=== PATIENT | male | born 1945 | race Caucasian/White ===

== ENCOUNTER 2018-12-23 07:59 | Inpatient (IN) | payer MEDICARE, OTHER ==
--- NOTE | 2018-12-20 14:09 | Diagnostic Imaging Report ---
EXAMINATION: PA and lateral views of the chest. COMPARISON: None CLINICAL HISTORY: Sternotomy wires DISCUSSION: Lines/tubes: None. Lungs: The lungs are well inflated and clear. No pneumonia or pulmonary edema. Pleura: No pleural effusion or pneumothorax. Heart and mediastinum: The cardiomediastinal silhouette is normal. Bones and soft tissues: No acute bony abnormalities. IMPRESSION: No acute cardiopulmonary abnormalities. Signed by: Dr. Blaise Mccracken M.D. on 12/20/2018 2:06 PM
[~2018-12-23] VITALS: Ht 175.3 cm; Wt 94.8 kg
[~2018-12-23 07:59] MED LIST: ALEVE220 MG PO; ASPIRIN325 MG PO; CLONIDINE HCL0.2 MG PO; CLOPIDOGREL75 MG PO; CRESTOR10 MG PO; FLOMAX0.4 MG PO; GLIMEPIRIDE2 MG PO; LOSARTAN-HCTZ1 EAC1 PO; METFORMIN PO; METOPROLOL PO; NITROSTAT; ROPIVACAINE 246.25 MG, EPINEPHRINE HCL 1:1000 1ML 0.5 MG, CLONIDINE HCL 0.08 MG, KETORO... INJ ONE; TOBRAMYCIN 1.2GM BULK BOTTLE INJ ONE; VANCOMYCIN HCL 1 GM VIAL IV ONE; VITAMIN C PO
--- OUTSIDE RECORDS SUMMARY | 2018-12-23 08:01 | XMS REPORT | Continuity of Care Document ---
Author Author [facility] Interface Address Unknown Phone Unavailable Problems Problem Status Onset Date Classification Date Reported Comments Source Hypertensive heart disease with heart failure Active Problem 10/23/2017 Anne Yuan Atherosclerosis of [place] arteries of extremity with intermittent claudication Active Problem 10/23/2017 Anne Yuan Stented coronary artery Active Problem 10/23/2017 Anne Yuan CAD of autologous arterial graft Active Diagnosis 10/23/2017 Anne Yuan Former smoker Active Problem 10/23/2017 Anne Yuan CKD , stage III Active Problem 10/23/2017 Anne Yuan Bradycardia Active Problem 10/23/2017 Anne Yuan Hypercholesteremia Active Problem 10/23/2017 Anne Yuan DM Active Problem 10/23/2017 Anne Yuan Abdominal aortic aneurysm without rupture Active Problem 10/23/2017 Anne Yuan Abnormal EKG Active Problem 10/23/2017 Anne Yuan Medications Medication Details Route Status Patient Instructions Ordering Provider Order Date Source Toprol XL 1 tablet Orally Active 25 MG Orally Once a day Kwabena Yuan Toprol XL 1 tablet Orally Active 25 MG Orally Once a day Kwabena Yuan Allergies, Adverse Reactions, Alerts Substance Category Reaction Severity Reaction type Status Date Reported Comments Source Immunizations Immunization Date Given Site Status Last Updated Comments Source Results Order Name Results Value Reference Range Date Interpretation Comments Source Vital Signs Vital Sign Value Date Comments Source Encounters Location Location Details Encounter Type Encounter Number Reason For Visit Attending Provider ADM Date DC Date Status Source Anne Yuan MD PA Unknown [id number] 11/25/2014 11/25/2014 Anne Yuan Procedures Procedure Code Date Perfomer Comments Source
--- OUTSIDE RECORDS SUMMARY | 2018-12-23 08:01 | XMS REPORT ---
Author Author Anne Yuan Organization [employer] Address Unknown Phone Unavailable Care Team Providers Care Drawing Press Operator Name Role Phone Anne Yuan CP Unavailable Encounters Encounter Location Date Unknown Anne Yuan MD PA Nov 25, 2014 Social History Social History Element Qualifiers Date Reported Smoking . Status Former Smoker Quit in 1994Nov 24, 2014 Alcohol Use No. Nov 24, 2014 Alcohol Screening: No. Points: 0, Interpretation: Negative Nov 24, 2014 Marital Status: . Nov 24, 2014 Do you drink alcohol? No. 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
--- OUTSIDE RECORDS SUMMARY | 2018-12-23 08:01 | XMS REPORT ---
Author Author [facility] Address Unknown Phone Unavailable Care Team Providers Care Keyseating Machine Set Up Operator Name Role Phone LOGAN ABBOTT Unavailable Unavailable Payers Payer Name Policy Type Policy Number Effective Date Expiration Date Problems This patient has no known problems. Allergies, Adverse Reactions, Alerts Allergy Name Allergy Type Status Severity Reaction(s) Onset Date Inactive Date Treating Clinician Comments morphine DA Active U 2018-09-24 00:00:00 codeine DA Active U 2018-09-24 00:00:00 morphine DA Active U 2016-11-26 00:00:00 codeine DA Active U 2016-11-26 00:00:00 Medications This patient has no known medications. Results Test Description Test Time Test Comments Text Results Atomic Results Result Comments CHEST 2 VIEWS 2018-12-20 14:03:00 [facility] [address] [place] [address] Patient Name: TALIB CASTRO MR #: [id number] : 1945 Age/Sex: 73/M Req #: [id number] Adm Physician: Ordered by: LOGAN ABBOTT MD Report #: [id number] Location: OR Room/Bed: Procedure: [id number] DX/CHEST 2 VIEWS Exam Date: 12/20/18 Exam Time: 1351 REPORT STATUS: Signed EXAMINATION: PA and lateral views of the chest. COMPAR MIKE: None CLINICAL HISTORY: Sternotomy wires DISCUSSION: Lines/tubes: None. Lungs: The lungs are well inflated and clear. No pneumonia or pulmonary edema. Pleura: No pleural effusion or pneumothorax. Heart and mediastinum: The cardiomediastinal silhouette is normal. Bones and soft tissues: No acute bony abnormalities. IMPRESSION: No acute cardiopulmonary abnormalities. Signed by: Dr. Dewayne Mckeon M.D. on 12/20/2018 2:06 PM Dictated By: DEWAYNE MCKEON MD [id number] Transcribed By: JOSHUA on 12/20/18 1406 COPY TO: LOGAN ABBOTT MD
--- OUTSIDE RECORDS SUMMARY | 2018-12-23 08:01 | XMS REPORT ---
Author Author Anne Yuan Organization e[employer] Address Unknown Phone Unavailable Care Team Providers Care Automotive Welder Name Role Phone Anne Yuan CP Unavailable Allergies No Known Allergies Problems Problem Type Condition Code Onset Dates Condition Status Problem Hypertensive heart disease with heart failure I11.0 Active Problem Atherosclerosis of [place] arteries of extremity with intermittent claudication I70.219 Active Problem Stented coronary artery Z95.5 Active Assessment CAD of autologous arterial graft I25.810 Active Problem CAD of autologous arterial graft I25.810 Active Problem Former smoker Z87.891 Active Problem CKD (chronic kidney disease), stage III N18.3 Active Problem Bradycardia R00.1 Active Problem Hypercholesteremia E78.00 Active Problem DM (diabetes mellitus) E11.9 Active Problem Abdominal aortic aneurysm (AAA) without rupture I71.4 Active Problem Abnormal EKG R94.31 Active Medications Medication Code System Code Instructions Start Date End Date Status Dosage Toprol XL [facility] 15162056043 25 MG Orally Once a day Active 1 tablet Results No Known Results Summary Purpose eClinicalWorks Submission
--- OUTSIDE RECORDS SUMMARY | 2018-12-23 08:01 | XMS REPORT ---
Author Author Anne Yuan Organization [employer] Address Unknown Phone Unavailable Care Team Providers Care Braille And Talking Books Clerk Name Role Phone Anne Yuan CP Unavailable Allergies No Known Allergies Problems Problem Type Condition Code Onset Dates Condition Status Problem DM (diabetes mellitus) E11.9 Active Problem Hypercholesteremia E78.00 Active Problem Atherosclerosis of [place] arteries of extremity with intermittent claudication I70.219 Active Assessment CAD of autologous arterial graft I25.810 Active Problem Stented coronary artery Z95.5 Active Problem CKD (chronic kidney disease), stage III N18.3 Active Problem Former smoker Z87.891 Active Problem Bradycardia R00.1 Active Problem Hypertensive heart disease with heart failure I11.0 Active Problem Abnormal EKG R94.31 Active Problem Abdominal aortic aneurysm (AAA) without rupture I71.4 Active Problem CAD of autologous arterial graft I25.810 Active Medications Medication Code System Code Instructions Start Date End Date Status Dosage Toprol XL [facility] [address]-80 25 MG Orally Once a day Active 1 tablet Results No Known Results Summary Purpose eClinicalWorks Submission
[2018-12-23] MEDS ORDERED: TRANEXAMIC ACID 1,000 MG/10 ML ML ONE (08:11)
[2018-12-23] MEDS ORDERED: BACITRACIN 50,000 UNIT VIAL ONE ×2 (08:11→12:18)
[2018-12-23] MEDS ORDERED: VANCOMYCIN HCL 500 MG ONE (08:19)
[2018-12-23] MEDS ORDERED: SODIUM CHLORIDE 0.9% 500ML 500 ML ONE (08:19)
[2018-12-23] MEDS ORDERED: DEXAMETHASONE SOD PHOS 10 MG/1 ML VIAL ONE (08:34)
[2018-12-23] MEDS ORDERED: CELECOXIB 200 MG CAP ONE (08:34)
[2018-12-23] MEDS ORDERED: GABAPENTIN 300 MG CAP ONE (08:34)
[2018-12-23] MEDS ORDERED: VANCOMYCIN 1GM/NS 250 ML 250 ML ONE (08:34)
[2018-12-23] MEDS ORDERED: ACETAMINOPHEN 650 MG SUPP PR PRN (13:00)
[2018-12-23] MEDS ORDERED: HYDROCODONE/APAP 5MG-325MG TAB PO PRN (13:00)
[2018-12-23] MEDS ORDERED: DOCUSATE SODIUM 100 MG CAP PO PRN (13:00)
[2018-12-23] MEDS ORDERED: ONDANSETRON HCL INJ 2MG/ML 2ML 2 MG/ML VIAL IV PRN (13:00)
[2018-12-23] MEDS ORDERED: PROMETHAZINE HCL (IM) 25 MG/ML VIAL IM PRN (13:00)
[2018-12-23] MEDS ORDERED: KETOROLAC TROMETHAMINE 30 MG/ML VIAL IV PRN (13:00)
[2018-12-23] MEDS ORDERED: DIPHENHYDRAMINE HCL INJ 50 MG/ML VIAL IM/IV PRN (13:00)
[2018-12-23] MEDS ORDERED: FENTANYL CITRATE/PF 100MCG/2 ML INJ ONE ×2 (13:44→18:17)
[2018-12-23] MEDS ORDERED: HYDROMORPHONE 2MG/ML 2 MG/ML ML ONE (14:01)
[2018-12-23] MEDS ORDERED: VANCOMYCIN HCL 1 GM VIAL ONE (14:20)
[2018-12-23] MEDS ORDERED: TOBRAMYCIN 1.2GM BULK BOTTLE ONE (14:21)
[2018-12-23] MEDS ORDERED: PROPOFOL IV EMULSION 10 MG/ML 20 ML VIAL ONE (15:03)
[2018-12-23] MEDS ORDERED: KETOROLAC TROMETHAMINE 30 MG/ML VIAL ONE (15:03)
[2018-12-23] MEDS ORDERED: ROCURONIUM BROMIDE 10 MG/ML 5ML VIAL ONE (15:03)
[2018-12-23] MEDS ORDERED: SEVOFLURANE INHAL SOLN 250 ML PEN BTL ONE (15:03)
[2018-12-23] MEDS ORDERED: DEXAMETHASONE SOD PHOS INJ 4 MG/ML VIAL ONE (15:03)
[2018-12-23] MEDS ORDERED: LIDOCAINE HCL 2% LOCAL INJ 5 ML SDV VIAL INJ ONE (15:03)
[2018-12-23] MEDS ORDERED: ONDANSETRON HCL INJ 2MG/ML 2ML 2 MG/ML VIAL ONE (15:03)
[2018-12-23] MEDS ORDERED: ACETAMINOPHEN 1000 MG/100 ML IV ONE (15:03)
--- NOTE | 2018-12-23 15:04 | Diagnostic Imaging Report ---
Exam: Left knee radiographs - 2 views History: Per clinical note, there was a prior history of fixation hardware in the left tibia for fracture, that subsequently became infected. Now status post removal with antibiotic spacer placement. Postoperative radiographs. Comparison: None. Findings: There has been removal of reported left tibial fixation hardware. There is an antibiotic articulating cement spacer between the distal femur and proximal tibia. There are immediate postoperative changes including subcutaneous gas, a knee effusion, and overlying skin jacquelyn. There is a mixed lytic and sclerotic appearance of the proximal tibia. There is a possible fracture line through the proximal tibial metaphysis, suggestive of incomplete healing. No evidence of displaced fracture. Impression: Postsurgical changes status post left tibial fixation hardware removal and placement of antibiotic spacer. Mixed lytic and sclerotic appearance of the proximal tibia, in this patient with known previously infected hardware. Underlying osteomyelitis is possible in the appropriate clinical context, and could be further assessed with cross sectional imaging if clinically indicated. There is a possible fracture line through the proximal tibial metaphysis, suggestive of incomplete healing. Comparison with known pre-operative radiographs or cross-sectional imaging is suggested. Signed by: Dr. Goyo Ko MD on 12/23/2018 3:01 PM
[2018-12-23] MEDS ORDERED: HYDROCODONE/APAP 7.5MG-325MG 1 EA TAB ONE (16:50)
[2018-12-23] MEDS: HYDROCODONE/APAP 7.5MG-325MG 1 EA TAB PO PRN ×2 (16:51→21:19)
[2018-12-23] MEDS ORDERED: CELECOXIB 100 MG CAP PO SCH (17:00)
[2018-12-23] MEDS ORDERED: ASPIRIN 325 MG TAB PO SCH (17:00)
[2018-12-23] MEDS: CELECOXIB 200 MG CAP PO SCH (17:00)
[2018-12-23] MEDS: ACETAMINOPHEN 1000 MG/100 ML IV SCH ×2 (18:00→23:31)
[2018-12-23] MEDS ORDERED: MIDAZOLAM HCL 2 MG/2 ML VIAL ONE (18:17)
[2018-12-23 20:00] VITALS: BP 187/80
[2018-12-23] MEDS: VANCOMYCIN 1GM/NS 250 ML 250 ML IV SCH (20:41)
[2018-12-23] MEDS ORDERED: ZOLPIDEM TARTRATE 5 MG TAB PO PRN (21:00)
[2018-12-23 22:22] VITALS: BP 179/88
[2018-12-24] VITALS (9 sets, daily range): BP systolic 120–194; BP diastolic 58–84
--- NOTE | 2018-12-24 00:30 | NUR ---
Dr. Taylor put order for PICC line insertion. Radiology states they need labs CBC, BMP, and PT/INR before calling PICC nurse. Labs where ordered as per protocol for routine in the morning.
[2018-12-24] MEDS: ACETAMINOPHEN 1000 MG/100 ML IV SCH ×2 (05:01→11:30)
[2018-12-24] MEDS ORDERED: DEXTROSE 50% SYRINGE 50 ML IV PRN (05:30)
[2018-12-24 05:51] LABS: INR 0.94; PROTHROMBIN TIME 13.4 seconds (11.9-14.5)
[2018-12-24] MEDS: CLONIDINE HCL 0.2 MG TAB PO SCH ×3 (05:51→17:45)
[2018-12-24 05:59] LABS: ANION GAP 16.2 mmol/L (8-16); CALCIUM 9.2 mg/dL (8.4-10.2); CREATININE, SERUM 1.65 mg/dL (0.72-1.25); POTASSIUM 4.2 mmol/L (3.5-5.1)
--- NOTE | 2018-12-24 06:04 | Consultation ---
DATE OF CONSULTATION: December 24, 2018 Patient is status post left total knee arthroplasty revision by Dr. Taylor, who is doing well postoperatively. I was consulted for medical management. REVIEW OF SYSTEMS: The patient denies on review of systems any fever, chills, nausea, vomiting, headache, shortness of breath, dizziness, or chest pains. PAST MEDICAL HISTORY: Significant hypertension, diabetes, BPH, hyperlipidemia. MEDICATIONS: See MAR. ALLERGIES: CODEINE, MORPHINE AND TRAMADOL. SOCIAL HISTORY: . Lives at home with his . Denies any tobacco or alcohol abuse. FAMILY HISTORY: Diabetes, heart disease and lung cancer. PHYSICAL EXAMINATION VITALS: 98.6, blood pressure 160/70, pulse 80, sats 98%. GENERAL: He is in no apparent distress lying in bed. NECK: Supple. No lymphadenopathy. CARDIOVASCULAR: Regular rate and rhythm. LUNGS: Clear to auscultation bilaterally. ABDOMEN: Good bowel sounds. Soft and nontender. EXTREMITIES: No clubbing or cyanosis. NEUROLOGIC: Nonfocal. ASSESSMENT AND PLAN 1. Left knee pain: Will continue with pain control and start physical therapy. 2. . 3. Hypertension: Continue with his home medications. Monitor. 4. Diabetes: Continue with his home medications. Place him a sliding scale. 5. BPH: Continue with his home medicines. 6. Hyperlipidemia: Will continue with his cholesterol medicine. Please see hospital chart for full details. Job#: [id number] VT
[2018-12-24] MEDS: HYDROCODONE/APAP 7.5MG-325MG 1 EA TAB PO PRN ×3 (06:17→17:45)
[2018-12-24 06:29] LABS: BASOPHILS % 0.1 % (0.0-1.0); HEMOGLOBIN 13.1 g/dL (14.0-18.0); LYMPHOCYTES # (AUTO) 1.2 (1.0-3.2); LYMPHOCYTES % 9.4 % (18.0-39.1); MEAN CORPUSCULAR HEMOGLOBIN 27.5 pg (28-32); MEAN CORPUSCULAR HGB CONC 32.8 g/dL (31-35); MONOCYTES # (AUTO) 1.8 (0.2-0.8); MONOCYTES % 13.9 % (4.4-11.3); NEUTROPHILS # (AUTO) 9.8 (2.1-6.9); PLATELET COUNT 273 x10e3/uL (140-360); RED BLOOD COUNT 4.76 x10e6/uL (4.3-5.7); RED CELL DISTRIBUTION WIDTH 13.8 % (11.7-14.4)
--- NOTE | 2018-12-24 06:55 | NUR ---
rounded with alum mixer nurse, patient aware of change. Patient in no distress, call [facility] within reach
[2018-12-24] MEDS: INSULIN REGULAR, HUMAN 100 UNIT/1 ML 3ML VIAL SQ SCH ×4 (07:30→20:21)
[2018-12-24 08:14] LABS: LYMPHOCYTES % (MANUAL) 10 % (19-48); MONOCYTES % (MANUAL) 12 % (3.4-9.0); NEUTROPHILS % (MANUAL) 78 % (40-74); PLATELET ESTIMATE ADEQUATE; PLATELET MORPHOLOGY COMMENT NORMAL; RBC MORPHOLOGY COMMENT NORMAL
[2018-12-24] MEDS: GLIMEPIRIDE 2 MG TAB PO SCH (08:26)
[2018-12-24] MEDS: HYDROCHLOROTHIAZIDE 25 MG TAB PO SCH (08:26)
[2018-12-24] MEDS: METOPROLOL TARTRATE 50 MG TAB PO SCH (08:26)
[2018-12-24] MEDS: VANCOMYCIN 1GM/NS 250 ML 250 ML IV SCH ×2 (08:26→20:27)
[2018-12-24] MEDS: CELECOXIB 200 MG CAP PO SCH ×2 (08:26→17:00)
[2018-12-24] MEDS: ASPIRIN 325 MG TAB PO SCH (08:26)
[2018-12-24] MEDS: TAMSULOSIN HCL 0.4 MG CAP PO SCH (08:26)
[2018-12-24] MEDS: CLOPIDOGREL BISULFATE 75 MG TAB PO SCH (08:27)
[2018-12-24] MEDS: ASCORBIC ACID 500 MG TAB PO SCH ×2 (08:27→17:45)
[2018-12-24] MEDS: NAPROXEN 250 MG TAB PO SCH (08:27)
[2018-12-24] MEDS ORDERED: CLONIDINE HCL 0.2 MG TAB PO SCH (09:00)
[2018-12-24] MEDS: HYDRALAZINE HCL 20 MG/ML VIAL IV PRN (11:30)
--- NOTE | 2018-12-24 11:33 | Operative Report ---
DATE OF PROCEDURE: December 23, 2018 SIGNALLING AND COMMUNICATIONS ENGINEER: Jamel Vincent PA-C The patient was brought to the operating room for induction of anesthesia. Throughout this case, my PA's assistance was necessary for retraction of soft tissue and positioning of the extremity. This allows for efficient and technically successful execution of the operation and is considered medically necessary. PREOPERATIVE DIAGNOSES 1. Complication of infection regarding internal fixation, left tibia and left knee joint. 2. Associated osteomyelitis. POSTOPERATIVE DIAGNOSES 1. Complication of infection regarding internal fixation, left tibia and left knee joint. 2. Associated osteomyelitis. PROCEDURES 1. Left knee hardware removal. 2. Irrigation and sharp debridement. 3. Resection arthroplasty with placement of temporary antibiotic prosthesis. INDICATIONS: The patient is a 73-year-old gentleman who is several years status post tibial plateau surgery on his left knee. This was on done down at [facility] in [place]. Over the last year or 2, he has had progressive severe discomfort. Clinic exam, x-rays and laboratory studies are consistent with a septic failure of the internal fixation. The treatment options were explained. The complicated and difficult nature of his procedure have been discussed. Several stages of reconstruction may be necessary. The patient states he understands and wishes to proceed with the initial resection and debridement. DESCRIPTION OF PROCEDURE: The patient was brought to the operating room and placed under general anesthetic. Antibiotics were held until cultures were obtained. His left lower extremity was prepped and draped in a sterile manner. A preoperative time out was performed. The extremity was exsanguinated, and a proximal tourniquet was inflated to 300 mmHg. An extensile anterior approach was made to the left knee. Initial attention was directed towards removing the hardware. The periarticular plate was dissected out and removed. A combination of locking and compression screws were removed. Another screw that was buried in the bone was also removed. The lateral and proximal tibia were carefully debrided with a Kahn elevator. There was a fibrinous membrane that looked seropurulent. Cultures were taken of this area. Because of the extensive lateral dissection, I elected to use primarily a lateral approach to the knee. A lateral parapatellar arthrotomy was performed. Soft-tissue releases were performed to mobilize the tibia. This actually required a partial medial release to juliocesar the patella. The knee was very stiff prior to this. It was noted that the hardware had been protruding into the joint. The posterior aspect of the tibia was completely un-united. There were some areas of necrotic bone. Cultures were also taken from within the knee joint. Vancomycin was then administered. A subtotal synovectomy was performed. The proximal tibia was resected with an oscillating saw. This was debrided down to more healthy-appearing bone. Cuts were made of the distal femur as well to remove the articular cartilage. The articular cartilage was also debrided off of the undersurface of the patella. The knee, on several occasions, was thoroughly irrigated with a shower-tip pulsatile lavage. Approximately 12 grams of vancomycin powder and another 6 grams of tobramycin were mixed in with 3 mixes of Simplex cement on the back table. This was used to construct a crude tibial baseplate. A prefabricated form for a distal femoral component was also fabricated. However, upon trying to insert this into the knee, it was really too tight. The femoral component started to fracture. I did not want to resect additional bone as the bone appeared fine at the level I had resected. We, therefore, used some of the vancomycin and tobramycin powder directly into the knee. The arthrotomy was then closed with interrupted #1 Ethibond. The skin was closed subcuticular Vicryl and jacquelyn. A bulky sterile bandage was applied. He was placed into a knee immobilizer. He was extubated and transported to the recovery room in stable condition. Estimated blood loss was 100 mL. All needle and sponge counts were correct. Job#: [id number]
[2018-12-24] MEDS ORDERED: ACETAMINOPHEN 1000 MG/100 ML IV PRN (13:00)
--- NOTE | 2018-12-24 13:01 | NUR ---
CIA AGENT INITIAL ASSESSMENT Maintenance Coordinator to bedside to discuss plan of care with patient/family. CM/SW role and care transitions discussed. Anticipated discharge plan discussed along with duration of care. CM/SW discussed patients right to make decisions in care. CM/SW work hours given. Patient lives: in house in [place] with his Becky Admit/Transfer: Direct admit POA/Emergency contact: : Becky [phone] Current/Previous Home Health: none but wants home health PCP/Follow-up Care: Dr. Donnie Mendoza Current/Previous DME: Needs wheelchair with leg lift. No wt bearing and cannot bend knee. Other Services: is asking for assistance with meals and home care. She is disabled and very anxious. States she is aware there are services for seniors, but does not know who to contact. Explained to her that social worker health services will be here tomorrow, and will be notified to please visit with her. Employment Status: Retired Areas of Concerns: is disabled and feeling very anxious about caring for her and herself. Is wanting additional resources. Referral Needs: financial services education consultant for community resources. Education Needs: caregiver needs education on how to care for patient at home IMM/JURADO given and signed (if applicable): IMM Goal for discharge: to return home with and all available resources. CM/SW left business card at the bedside with contact information. Name and number was also written on the patients whiteboard. Patient verbalized understanding of discussion. CM will follow-up with ongoing discharge and transition of care needs.
--- NOTE | 2018-12-24 13:04 | Diagnostic Imaging Report ---
PROCEDURE: A single AP view of the chest. COMPARISON: None. INDICATIONS: PICC LINE PLACEMNT FINDINGS: Lines/tubes: Right-sided PICC terminates at the cavoatrial junction. There are sternotomy wire sutures. Lungs: The lungs are well inflated and clear. There is no evidence of pneumonia or pulmonary edema. Pleura: There is no pleural effusion or pneumothorax. Heart and mediastinum: The heart is mildly enlarged. Mediastinal prominence likely secondary to lipomatosis and related to the patient's body habitus. Bones: No acute bony abnormality. IMPRESSION: 1. No acute cardiopulmonary disease. 2. Right-sided PICC as described above. Dioni Daley D.O. Dictated by: Dioni Daley D.O. on 12/24/2018 at 13:15 Electronically approved by: Dioni Daley D.O. on 12/24/2018 at 13:15
--- NOTE | 2018-12-24 13:50 | NUR ---
Visit made by the Spiritual Care Department Pastoral Visitor, Chiqui Medina. Pt sleeping soundly and no family present. Pastoral Visitor left a card describing availability of gas utility worker and instructions on how to contact a gas utility worker. JIMMIE CASTILLO Pharmacy Cashier Spiritual Care Department O: [phone] Pager: [phone] ([phone] number calling from)
--- NOTE | 2018-12-24 14:42 | NUR ---
Nurse called and stated patient may need to go to LTAC for longterm IV antibiotics, pain control and PT. Informed her CM will need an LTAC eval order. She verbalized understanding.
--- NOTE | 2018-12-24 15:04 | NUR ---
Patient did notify CM earlier today that home health was set up by Dr. Taylor's office, but she did not know the name of it.
--- NOTE | 2018-12-24 16:47 | Consultation ---
DATE OF CONSULTATION: December 24, 2018 INFECTIOUS DISEASE CONSULTATION REASON FOR CONSULTATION: Infected knee, recommendation of antibiotic. HISTORY OF PRESENT ILLNESS: This is a patient who is a very pleasant 73-year-old gentleman who has history of hypertension, diabetes mellitus. The patient, who had a total knee replacement done by Dr. Taylor several years ago, had tibial plateau surgery done in his left knee at [facility] in [place]. The patient over the last year has been having progressive discomfort. The patient had x-ray consistent with open infection and failure of the internal fixation. Patient was admitted where he underwent a left knee hardware removal, irrigation and sharp debridement, resection, arthroplasty with placement of temporary antibiotic prosthesis. I was asked to see him to make recommendation towards antibiotic. The patient is currently lying in bed comfortably. PAST MEDICAL HISTORY: As above. PAST SURGICAL HISTORY: As above. ALLERGIES: NKA. SOCIAL HISTORY: There is no smoking, drug abuse, alcohol abuse. REVIEW OF SYSTEMS HEENT: Negative. PULMONARY: Negative. CARDIAC: Negative. : Negative. SKIN: There is no rash. PHYSICAL EXAMINATION GENERAL: He is currently alert, oriented, does not seem to be in acute distress. VITAL SIGNS: Stable. Currently afebrile. HEENT: He does not appear icteric. NECK: Supple. CHEST: Clear. HEART: S1 and S2. No S3 or S4, no murmur. ABDOMEN: Soft. Bowel sounds present. No tenderness. EXTREMITIES: No edema. He is status post surgery. IMPRESSION: Infected hardware, removed. Concerned about coagulase-negative staphylococcus or versus other. Await culture and sensitivity. Agree with vancomycin. Will add cefepime. Obtain sed rate, obtain C-reactive protein. PICC line is inserted. Biweekly CBC, biweekly chem panel, biweekly vancomycin trough. Eight weeks IV antibiotic. May need LTAC versus home. Will follow with you. Further recommendations to follow. DIVYA JONES MD Job#: [id number] EV
--- NOTE | 2018-12-24 19:10 | NUR ---
report given to shift leader nurse, patient aware of change. Bed in lowest position and call [facility] within reach.
[2018-12-24] MEDS ORDERED: SODIUM CHLORIDE 0.9% 250ML 250 ML ONE (20:13)
[2018-12-24] MEDS: LOSARTAN POTASSIUM 100 MG TAB PO SCH (20:20)
[2018-12-24] MEDS: SIMVASTATIN 20 MG TAB PO SCH (20:21)
--- NOTE | 2018-12-24 21:26 | NUR ---
Charles bandage removed and leg brace reapplied per Dr. Taylor. Surgical dressing dry and secure. Bilateral legs elevated with pillow.
[2018-12-24] MEDS: CEFEPIME 1GM/NS 0.9% 50 ML 50 ML IV SCH (21:51)
[2018-12-25] VITALS (9 sets, daily range): BP systolic 129–189; BP diastolic 67–84
[2018-12-25] MEDS: CLONIDINE HCL 0.2 MG TAB PO SCH ×4 (00:03→17:12)
[2018-12-25] MEDS: HYDRALAZINE HCL 20 MG/ML VIAL IV PRN (04:23)
[2018-12-25] MEDS: HYDROCODONE/APAP 7.5MG-325MG 1 EA TAB PO PRN ×4 (05:10→21:52)
--- NOTE | 2018-12-25 05:23 | NUR ---
Patient states he's having some "sensation" in his chest after IV hydralazine. Blood pressure 189/88 prior to hydralazine then 180/81 during sensation. States sensation has passed. States surgical site to left knee is at a 6 on pain scale. Administered pain medication. Will continue to monitor
[2018-12-25 05:41] LABS: HEMATOCRIT 39.9 % (38.2-49.6); HEMOGLOBIN 13.2 g/dL (14.0-18.0)
[2018-12-25] MEDS: CEFEPIME 1GM/NS 0.9% 50 ML 50 ML IV SCH ×3 (05:56→23:00)
[2018-12-25] MEDS: INSULIN REGULAR, HUMAN 100 UNIT/1 ML 3ML VIAL SQ SCH ×4 (07:50→21:30)
[2018-12-25] MEDS: GLIMEPIRIDE 2 MG TAB PO SCH (07:55)
--- NOTE | 2018-12-25 08:01 | NUR ---
patient resting in bed, Alert with no distress. left knee dressing is intact, call light in reach, keep monitoring
[2018-12-25] MEDS: NAPROXEN 250 MG TAB PO SCH (08:06)
[2018-12-25] MEDS: VANCOMYCIN 1GM/NS 250 ML 250 ML IV SCH ×2 (08:06→21:30)
[2018-12-25] MEDS: TAMSULOSIN HCL 0.4 MG CAP PO SCH (08:06)
[2018-12-25] MEDS: ASPIRIN 325 MG TAB PO SCH (08:06)
[2018-12-25] MEDS: METOPROLOL TARTRATE 50 MG TAB PO SCH (08:06)
[2018-12-25] MEDS: AMLODIPINE BESYLATE 5 MG TAB PO SCH (08:06)
[2018-12-25] MEDS: CELECOXIB 200 MG CAP PO SCH ×2 (08:06→17:11)
[2018-12-25] MEDS: HYDROCHLOROTHIAZIDE 25 MG TAB PO SCH (08:06)
[2018-12-25] MEDS: CLOPIDOGREL BISULFATE 75 MG TAB PO SCH (08:06)
[2018-12-25] MEDS: ASCORBIC ACID 500 MG TAB PO SCH ×2 (08:07→17:11)
--- NOTE | 2018-12-25 14:44 | NUR ---
RECEIVED ORDER FOR LTAC EVAL. MET W THE PT AND AT THE BEDSIDE. EXPLAINED THE PURPOSE OF THE VISIT. STATES SHE WAS AWARE OF A TRANSFER TO [facility] AND WAS WAITING FOR SOMEONE TO SEE THEM. EXPLAINED TO THE PT THE PURPOSE OF LTAC. VERBALIZED UNDERSTANDING. CHOICE LETTER WAS SIGNED AND PLACED CHART. COPY TO PT. NURIA CLEMENTS WAS NOTIFIED OF EVAL.
--- NOTE | 2018-12-25 16:40 | NUR ---
Patient got transfer to room 293, stable, not in any distress
--- NOTE | 2018-12-25 16:51 | NUR ---
Pt received from observation unit via bed. Pt oriented to staff and surroundings. Call [facility] within reach. Emotional support given. Will monitor
--- NOTE | 2018-12-25 19:00 | NUR ---
Received Pt lying in bed HOB 30 degrees. Alert and orient to name, place, time, and situation. Denies pain at this time. Resp even and unlabored. Family at bedside. Call [facility] within reach. Will continue to monitor.
[2018-12-25] MEDS: SIMVASTATIN 20 MG TAB PO SCH (21:30)
[2018-12-25] MEDS: LOSARTAN POTASSIUM 100 MG TAB PO SCH (21:30)
[2018-12-26] VITALS: BP 153/65
[2018-12-26] MEDS: HYDROCODONE/APAP 7.5MG-325MG 1 EA TAB PO PRN ×4 (02:22→14:47)
[2018-12-26 04:00] VITALS: BP 134/60
[2018-12-26] MEDS ORDERED: BISACODYL 5 MG TAB EC PO SCH (05:30)
[2018-12-26] MEDS: CEFEPIME 1GM/NS 0.9% 50 ML 50 ML IV SCH ×2 (05:46→13:32)
[2018-12-26] MEDS: CLONIDINE HCL 0.2 MG TAB PO SCH ×3 (05:47→12:52)
[2018-12-26 07:48] VITALS: BP 122/75
[2018-12-26 08:50] VITALS: BP 122/75
[2018-12-26] MEDS: VANCOMYCIN 1GM/NS 250 ML 250 ML IV SCH (09:00)
[2018-12-26] MEDS: INSULIN REGULAR, HUMAN 100 UNIT/1 ML 3ML VIAL SQ SCH ×2 (09:08→12:52)
[2018-12-26] MEDS: ASPIRIN 325 MG TAB PO SCH (09:08)
[2018-12-26] MEDS: GLIMEPIRIDE 2 MG TAB PO SCH (09:08)
--- NOTE | 2018-12-26 09:08 | NUR ---
Pt received resting in bed with at bedside. Left knee in immobilizer. All meds given as ordered. Call [facility] within reach. Emotional support given. Will monitor
[2018-12-26] MEDS: NAPROXEN 250 MG TAB PO SCH (09:09)
[2018-12-26] MEDS: AMLODIPINE BESYLATE 5 MG TAB PO SCH (09:09)
[2018-12-26] MEDS: TAMSULOSIN HCL 0.4 MG CAP PO SCH (09:09)
[2018-12-26] MEDS: CELECOXIB 200 MG CAP PO SCH (09:09)
[2018-12-26] MEDS: METOPROLOL TARTRATE 50 MG TAB PO SCH (09:09)
[2018-12-26] MEDS: HYDROCHLOROTHIAZIDE 25 MG TAB PO SCH (09:09)
[2018-12-26] MEDS: CLOPIDOGREL BISULFATE 75 MG TAB PO SCH (09:09)
[2018-12-26] MEDS: ASCORBIC ACID 500 MG TAB PO SCH (09:09)
[2018-12-26 11:04] LABS: BASOPHILS # (AUTO) 0.1 (0.0-0.1); BASOPHILS % 0.8 % (0.0-1.0); EOSINOPHILS # (AUTO) 0.2 (0.0-0.4); EOSINOPHILS % 2.3 % (0.0-6.0); HEMATOCRIT 42.4 % (38.2-49.6); HEMOGLOBIN 13.9 g/dL (14.0-18.0); LYMPHOCYTES % 14.3 % (18.0-39.1); MEAN CORPUSCULAR HEMOGLOBIN 27.5 pg (28-32); MEAN CORPUSCULAR HGB CONC 32.8 g/dL (31-35); MONOCYTES % 13.3 % (4.4-11.3); NEUTROPHILS % 68.7 % (38.7-80.0); PLATELET COUNT 252 x10e3/uL (140-360); RED BLOOD COUNT 5.05 x10e6/uL (4.3-5.7); RED CELL DISTRIBUTION WIDTH 14.1 % (11.7-14.4)
[2018-12-26 11:12] LABS: ANION GAP 15.8 mmol/L (8-16); BLOOD UREA NITROGEN 24 mg/dL (7-26); BUN/CREATININE RATIO 21 (6-25); CALCIUM 9.4 mg/dL (8.4-10.2); CARBON DIOXIDE 26 mmol/L (22-29); CHLORIDE 98 mmol/L (98-107); CREATININE, SERUM 1.17 mg/dL (0.72-1.25); EST GLOMERULAR FILTRATION RATE > 60 ML/MIN (60-); GLUCOSE 170 mg/dL (74-118); POTASSIUM 3.8 mmol/L (3.5-5.1); SODIUM 136 mmol/L (136-145)
[2018-12-26 11:17] LABS: VANCOMYCIN,TROUGH 21.8 ug/mL (5.0-10.0)
[2018-12-26 11:46] VITALS: BP 139/77
--- NOTE | 2018-12-26 12:09 | NUR ---
LONG-TERM ACUTE CARE DISCHARGE INFORMATION PATIENT HAS BEEN ACCEPTED TO: NAME: [facility] ADDRESS: [address], [place] [address] ACCEPTING APPRAISER OIL AND WATER: MAEGAN PARK, NURSE PRACTITIONER PER DIEM ACCEPTING MD: DR. DOOLEY ROOM: 312 NURSE CALL REPORT TO: [phone] THE FOLLOWING DOCUMENTS MUST ACCOMPANY PATIENT FOR TRANSFER: COPIED CHART: [facility] INFO RECEIVED FROM: [facility] ORDER/RECONCILED MED LIST: PER BEDSIDE NURSE [id number] DNR: N/A
--- NOTE | 2018-12-26 13:06 | NUR ---
Report given to Taylor HENDRIX at [facility]. Pt is being transferred to room 312
--- NOTE | 2018-12-26 15:09 | NUR ---
[facility] here to take pt to [facility]. Pt aware of transfer
[2018-12-27] MEDS ORDERED: VANCOMYCIN HCL 1.5 GM in SODIUM CHLORIDE 0.9% 250ML 300 ML IV SCH (11:00)
== END 2018-12-26 15:13 | DRG 940 ==
LOC: OR 07:59 → IMCU 18:32 → MED/SURG3 12-25 16:34
PROVIDERS: ADMIT Specialist; ATTEND Specialist
PROC: 0SBD0ZZ Excision of Left Knee Joint, Open Approach (ICD-10-PCS; 2018-12-23)
PROC: 0QBH0ZZ Excision of Left Tibia, Open Approach (ICD-10-PCS; 2018-12-23)
PROC: 0MDP0ZZ Extraction of Left Knee Bursa and Ligament, Open Approach (ICD-10-PCS; 2018-12-23)
PROC: 3E0U029 Introduction of Other Anti-infective into Joints, Open Approach (ICD-10-PCS; 2018-12-23)
PROC: 0SPD04Z Removal of Internal Fixation Device from Left Knee Joint, Open Approach (ICD-10-PCS; principal; 2018-12-23 10:30)
DX: T84.621D Infection and inflammatory reaction due to internal fixation device of left femur, subsequent encounter (principal); M86.8X6 Other osteomyelitis, lower leg; T84.623D Infection and inflammatory reaction due to internal fixation device of left tibia, subsequent encounter; Z83.3 Family history of diabetes mellitus; Z82.49 Family history of ischemic heart disease and other diseases of the circulatory system; Z80.1 Family history of malignant neoplasm of trachea, bronchus and lung; Z88.5 Allergy status to narcotic agent; Z88.8 Allergy status to other drugs, medicaments and biological substances; Z79.82 Long term (current) use of aspirin; I10 Essential (primary) hypertension; I25.2 Old myocardial infarction; M10.9 Gout, unspecified; I25.10 Atherosclerotic heart disease of native coronary artery without angina pectoris; E11.9 Type 2 diabetes mellitus without complications; Z85.46 Personal history of malignant neoplasm of prostate; Z79.84 Long term (current) use of oral hypoglycemic drugs; M17.32 Unilateral post-traumatic osteoarthritis, left knee
CPT/HCPCS: 36415; 36569; 71045; 71046; 80048; 80202; 82948; 85014; 85018; 85025; 85610; 86850; 86900; 86920; 87071; 87075; 87205; 96361; 97139; C1713; J0171; J0360; J0692; J1100; J1885; J2001; J2250; J2405; J2795; J3370; J7040; J7050

== ENCOUNTER 2019-03-25 08:19 | Inpatient (IN) | payer MEDICARE, OTHER ==
[~2019-03-25] VITALS: Ht 175.3 cm; Wt 96.6 kg
[~2019-03-25 08:19] MED LIST changes: -TOBRAMYCIN 1.2GM BULK BOTTLE INJ ONE; -VANCOMYCIN HCL 1 GM VIAL IV ONE; +VITAMIN D3400 UNIT PO
--- OUTSIDE RECORDS SUMMARY | 2019-03-25 08:22 | XMS REPORT | Continuity of Care Document ---
Author Author [facility] Interface Address Unknown Phone Unavailable Problems Problem Status Onset Date Classification Date Reported Comments Source DM Active Problem 10/23/2017 Anne Yuan Hypercholesteremia Active Problem 10/23/2017 Anne Yuan Atherosclerosis of [place] arteries of extremity with intermittent claudication Active Problem 10/23/2017 Anne Yuan CAD of autologous arterial graft Active Diagnosis 10/23/2017 Anne Yuan Stented coronary artery Active Problem 10/23/2017 Anne Yuan CKD , stage III Active Problem 10/23/2017 Anne Yuan Former smoker Active Problem 10/23/2017 Anne Yuan Bradycardia Active Problem 10/23/2017 Anne Yuan Hypertensive heart disease with heart failure Active Problem 10/23/2017 Anne Yuan Abnormal EKG Active Problem 10/23/2017 Anne Yuan Abdominal aortic aneurysm without rupture Active Problem 10/23/2017 Anne Yuan Medications Medication [...] Status Source Anne Yuan MD PA Unknown [id number] 11/25/2014 11/25/2014 Anne Yuan Procedures Procedure Code Date Perfomer Comments Source
[2019-03-25] MEDS ORDERED: GABAPENTIN 300 MG CAP ONE (08:49)
[2019-03-25] MEDS ORDERED: DEXAMETHASONE SOD PHOS 10 MG/1 ML VIAL ONE (08:49)
[2019-03-25] MEDS ORDERED: CELECOXIB 200 MG CAP ONE (08:49)
[2019-03-25] MEDS ORDERED: VANCOMYCIN 1GM/NS 250 ML 250 ML ONE (08:50)
[2019-03-25] MEDS ORDERED: VANCOMYCIN HCL 500 MG ONE (09:17)
[2019-03-25] MEDS ORDERED: TRANEXAMIC ACID 1,000 MG/10 ML ML ONE (09:17)
[2019-03-25] MEDS ORDERED: BACITRACIN 50,000 UNIT VIAL ONE (09:17)
[2019-03-25] MEDS ORDERED: SODIUM CHLORIDE 0.9% 500ML 500 ML ONE (09:17)
[2019-03-25] MEDS ORDERED: VANCOMYCIN HCL 1 GM VIAL ONE (10:49)
[2019-03-25] MEDS ORDERED: ACETAMINOPHEN 650 MG SUPP PR PRN (12:45)
[2019-03-25] MEDS ORDERED: HYDROCODONE/APAP 7.5MG-325MG 1 EA TAB PO PRN (12:45)
[2019-03-25] MEDS ORDERED: DIPHENHYDRAMINE HCL INJ 50 MG/ML VIAL IM/IV PRN (12:45)
[2019-03-25] MEDS ORDERED: DOCUSATE SODIUM 100 MG CAP PO PRN (12:45)
[2019-03-25] MEDS ORDERED: HYDROCODONE/APAP 5MG-325MG TAB PO PRN (12:45)
[2019-03-25] MEDS ORDERED: PROMETHAZINE HCL (IM) 25 MG/ML VIAL INJ PRN (12:45)
[2019-03-25] MEDS ORDERED: ONDANSETRON HCL INJ 2MG/ML 2ML 2 MG/ML VIAL IV PRN (12:45)
[2019-03-25] MEDS ORDERED: LABETALOL HCL 0 ML ONE (12:52)
[2019-03-25] MEDS ORDERED: FENTANYL CITRATE/PF 100MCG/2 ML INJ ONE (13:06)
--- NOTE | 2019-03-25 13:36 | Diagnostic Imaging Report ---
Left knee radiographs-2 views History: Postoperative. Findings: Status post interval repeat left total knee arthroplasty with prosthetic components in anatomic alignment. The hardware appears intact. Overlying subcutaneous emphysema and surgical skin jacquelyn are present. Patchy sclerotic appearance of the proximal tibia is unchanged from radiograph on 12/23/2018. Previously noted lucent line in the proximal tibial metaphysis is not well-visualized. No evidence of interval fracture. Atherosclerotic vascular calcifications. IMPRESSION: Status post repeat total left knee arthroplasty in anatomic alignment. Patchy sclerotic appearance of the proximal tibia is unchanged from radiograph on 12/23/2018 and may reflect prior surgical or post traumatic changes or chronic osteomyelitis. Per the clinical history, the patient had prior infected hardware that was removed. This can be correlated with cross-sectional imaging if clinically indicated. Signed by: Dr. Goyo Ko MD on 03/25/2019 1:32 PM
[2019-03-25 14:20] VITALS: BP 157/78
[2019-03-25] MEDS: SODIUM CHLORIDE 0.9% 1000ML 1,000 ML IV SCH ×2 (14:37→22:44)
[2019-03-25 15:01] VITALS: BP 157/78
[2019-03-25] MEDS: VANCOMYCIN 1GM/NS 250 ML 250 ML IV SCH (15:23)
[2019-03-25 16:37] VITALS: BP 142/64
[2019-03-25] MEDS ORDERED: ASPIRIN 325 MG TAB PO SCH (17:00)
[2019-03-25] MEDS: ACETAMINOPHEN 1000 MG/100 ML IV SCH ×2 (17:28→22:45)
[2019-03-25] MEDS: CELECOXIB 100 MG CAP PO SCH (17:28)
[2019-03-25] MEDS ORDERED: EPHEDRINE SULFATE INJ 50 MG/10 ML SYR ONE (17:33)
[2019-03-25] MEDS ORDERED: LIDOCAINE HCL 2% LOCAL INJ 5 ML SDV VIAL INJ ONE (17:33)
[2019-03-25] MEDS ORDERED: ONDANSETRON HCL INJ 2MG/ML 2ML 2 MG/ML VIAL ONE (17:33)
[2019-03-25] MEDS ORDERED: DEXAMETHASONE SOD PHOS INJ 4 MG/ML VIAL ONE (17:33)
[2019-03-25] MEDS ORDERED: PROPOFOL IV EMULSION 10 MG/ML 20 ML VIAL ONE (17:33)
--- NOTE | 2019-03-25 18:53 | NUR ---
BLEEDING NOTED ON LEFT LATERAL SIDE OF LEFT KNEE SEEPING THROUGH DAYANA BANDAGE. NOTIFIED DR. ABBOTT STATES BLEEDING IS UNAVOIDABLE WITH THE SURGERY PT HAD, APPLY COMPRESSION BANDAGE AND RECHECK IN ONE HOUR TO MONITOR FOR LOWER EXT EDEMA. REPORT GIVEN TO CFO NURSE. NURSE APPLIED COMPRESSION BANDAGE AT THIS TIME.
--- NOTE | 2019-03-25 19:00 | NUR ---
Applied new Charles wrap around the left knee per MD order. First removing the immobilizer then applying the Charles wrap. Immobilizer is placed on LLE. Monitor the LLE with neurovascular check.
[2019-03-25] MEDS ORDERED: EPINEPHRINE HCL 1:1000 1ML 1 MG/ML AMP ONE (19:16)
[2019-03-25] MEDS ORDERED: BUPIVACAINE HCL 0.5% INJ 30 ML VIAL INJ ONE (19:16)
[2019-03-25 20:00] VITALS: BP 158/69
[2019-03-25] MEDS ORDERED: ZOLPIDEM TARTRATE 5 MG TAB PO PRN (21:00)
[2019-03-26] VITALS (9 sets, daily range): BP systolic 105–208; BP diastolic 52–85
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
[2019-03-26] MEDS: VANCOMYCIN 1GM/NS 250 ML 250 ML IV SCH (02:13)
[2019-03-26] MEDS: ACETAMINOPHEN 1000 MG/100 ML IV SCH ×2 (05:00→12:13)
--- NOTE | 2019-03-26 05:17 | NUR ---
Drainage continues to seep through the Charles wraps. Waiting for Dr. Taylor to visit the patient for further order. The patient will have HH lab drawn in the morning.
[2019-03-26 07:12] LABS: HEMATOCRIT 33.4 % (38.2-49.6); HEMOGLOBIN 10.7 g/dL (14.0-18.0)
--- NOTE | 2019-03-26 07:15 | NUR ---
upon shift change left beatriz drap saturated with blood around knee site into brace stabilizer, placed gauze at knee site and wrapped with another beatriz wrap over prior wrap. marked site on bleeding site.
[2019-03-26] MEDS: LOSARTAN POTASSIUM 100 MG TAB PO SCH (07:57)
[2019-03-26] MEDS: TAMSULOSIN HCL 0.4 MG CAP PO SCH (07:57)
[2019-03-26] MEDS: CELECOXIB 100 MG CAP PO SCH ×2 (07:57→16:45)
[2019-03-26] MEDS: GLIMEPIRIDE 2 MG TAB PO SCH (07:57)
[2019-03-26] MEDS: SIMVASTATIN 40 MG TAB PO SCH (07:57)
[2019-03-26] MEDS: CLONIDINE HCL 0.2 MG TAB PO SCH ×4 (07:57→21:00)
[2019-03-26] MEDS: HYDROCHLOROTHIAZIDE 25 MG TAB PO SCH (07:57)
[2019-03-26] MEDS: METOPROLOL TARTRATE 25 MG TAB PO SCH (07:57)
[2019-03-26] MEDS: SODIUM CHLORIDE 0.9% 1000ML 1,000 ML IV SCH (08:35)
--- NOTE | 2019-03-26 08:50 | NUR ---
Ajskaran with md Taylor was notified upon rounding of pt bleeding of left knee upon rounds Jaskaran removed beatriz wraps and aquacel dressing. redressed site with multiple gauze and abd pads and covered with beatriz wrap and applied brace Jaskaran states he will be back at noon time to assess pt surgical site. pt resting comfortably, will continue to monitor closely
[2019-03-26] MEDS: KETOROLAC TROMETHAMINE 30 MG/ML VIAL IV PRN ×2 (10:16→23:15)
[2019-03-26] MEDS: ASPIRIN 325 MG TAB PO SCH (10:16)
--- NOTE | 2019-03-26 11:25 | Consultation ---
DATE OF CONSULTATION: REASON FOR CONSULTATION: Postop medical management. HISTORY OF PRESENT ILLNESS: The patient is a 74-year-old gentleman, who is status post left knee pain, who is status post surgical correction of his left knee. REVIEW OF SYSTEMS: He complains of some left knee discomfort, but otherwise denies any fevers, chills, nausea, vomiting, headache, shortness of breath, or dizziness. PAST MEDICAL HISTORY: Significant for gout, old MD, coronary artery disease, hypertension, diabetes, hyperlipidemia, BPH, prostate cancer, history of bypass surgery. MEDICATIONS: See JAN. ALLERGIES: TRAMADOL, HYDROCODONE, CODEINE, MORPHINE. SOCIAL HISTORY: Nonsmoker, nondrinker. Lives at home with his . FAMILY HISTORY: Diabetes, heart disease, and lung cancer. PHYSICAL EXAMINATION: VITAL SIGNS: Temperature is 97.6, pulse 65, blood pressure 122/60, sats 99% on 2 L. GENERAL: He is in no apparent distress, sitting up in bed. NECK: Supple. CARDIOVASCULAR: Regular rate and rhythm. LUNGS: Clear to auscultation bilaterally. ABDOMEN: Good bowel sounds. Soft and nontender. EXTREMITIES: No clubbing or cyanosis. NEUROLOGICAL: Nonfocal. ASSESSMENT AND PLAN: 1. Hypertension. Continue with his home medication. We will monitor blood pressure. 2. Benign prostatic hypertrophy. Continued with his home medication. 3. Coronary artery disease. Continue to monitor. 4. Diabetes. Continue with his home medications and monitor the sugars. 5. Hyperlipidemia. Continue with his home medications. Please see hospital chart for full details. MD CLAUDIO Wynn/MONSE /[id number]
[2019-03-26] MEDS ORDERED: ONDANSETRON HCL 4 MG ORAL DISINTEGRATING TAB PO PRN (11:45)
[2019-03-26] MEDS ORDERED: ACETAMINOPHEN 1000 MG/100 ML IV PRN (12:45)
--- NOTE | 2019-03-26 12:48 | NUR ---
IMM EXPLAINED TO PT, SIGNED BY PT AND PLACED ON CHART COPY TO PT IN CARE TRANSITION FOLDER
--- NOTE | 2019-03-26 20:20 | NUR ---
Voided.assessment done.no resp.distress.left knee dressing is dry .bed locked and in lowest position.phone and call light within reach.informed to call for assistance as needed.stable condition.
[2019-03-27] VITALS: BP 144/65
--- NOTE | 2019-03-27 00:42 | NUR ---
Pain medicine given.pt is comfortably lyeing in the bed.family member at bed side.
[2019-03-27 04:00] VITALS: BP 159/67
[2019-03-27 07:10] LABS: HEMATOCRIT 31.7 % (38.2-49.6); HEMOGLOBIN 10.5 g/dL (14.0-18.0)
[2019-03-27] MEDS: KETOROLAC TROMETHAMINE 30 MG/ML VIAL IV PRN ×2 (07:18→12:52)
[2019-03-27] MEDS: ASPIRIN 325 MG TAB PO SCH (07:56)
[2019-03-27] MEDS: GLIMEPIRIDE 2 MG TAB PO SCH (07:56)
[2019-03-27] MEDS: LOSARTAN POTASSIUM 100 MG TAB PO SCH (07:57)
[2019-03-27] MEDS: SIMVASTATIN 40 MG TAB PO SCH (07:57)
[2019-03-27] MEDS: METOPROLOL TARTRATE 25 MG TAB PO SCH (07:57)
[2019-03-27] MEDS: CELECOXIB 100 MG CAP PO SCH (07:57)
[2019-03-27] MEDS: HYDROCHLOROTHIAZIDE 25 MG TAB PO SCH (07:57)
[2019-03-27] MEDS: CLONIDINE HCL 0.2 MG TAB PO SCH ×2 (07:57→13:06)
[2019-03-27] MEDS: TAMSULOSIN HCL 0.4 MG CAP PO SCH (07:57)
[2019-03-27 07:58] VITALS: BP 210/85
[2019-03-27 07:59] VITALS: BP 210/85
--- NOTE | 2019-03-27 08:30 | NUR ---
GEOPHYSICAL LABORATORY SUPERVISOR GURU WITH MD ABBOTT ROUNDED AND STATES PT IS GOOD TO GO WHEN MD ABBOTT ROUNDS THIS AFTERNOON ORDERED TO REMOVE DAYANA WRAP AND PLACE ABD PAD WITH STOCKING COVERING SITE SAME ORDERS FOR DRESSING WHEN GOING HOME ORDERS RECEIVED
--- NOTE | 2019-03-27 09:05 | NUR ---
CALLED [facility] [phone] SPOKE WITH JACKIE SHE STATES HAVE NOT RECEIVED ORDERS, FAXED TO HER [phone]. CALLED [facility] [phone] SPOKE WITH SANDRA WHOM STATES [facility] DISCHARGES FOR DR ABBOTT, SHE WILL TEXT HIM AND HAVE HIM CALL ME BACK, WILL UPDATE RECORD WHEN GET INFORMATION ABOUT DME.
--- NOTE | 2019-03-27 09:12 | NUR ---
SANDRA RETURNED CALL AND STATES PT ALREADY HAS WALKER, REFUSED BEDSIDE COMMODE AND DR ABBOTT CANCELLED CPM AND ORDERED A BRACE INSTEAD WHICH PT ALREADY HAS. PT TO FOLLOW UP WITH HOME [facility]
--- NOTE | 2019-03-27 09:15 | NUR ---
REMOVED DAYANA WRAP AND PLACED STOCKING ORDERED. PLACED BRACE ON LEFT KNEE PT TOLERATED WELL WILL CONTINUE TO MONITOR
--- NOTE | 2019-03-27 09:23 | NUR ---
EFE FROM [facility] CALLED BACK STATING NO CLINICALS HAD BEEN SEEN YET, FAXING TO HER NOW. TO GET PT TAKEN CARE OF TO CONTINUE DISCHARGE.
[2019-03-27 10:26] VITALS: BP 155/71
[2019-03-27 11:56] VITALS: BP 158/70
--- NOTE | 2019-03-27 14:07 | NUR ---
SPOKE WITH MD ABBOTT RERZAHRA CLARIFICATION OF PRESCRIPTION FOR NORCO DUE TO CODEINE ALLERGY STATES PT CAN HAVE THIS AT HOME WITH BENADRYL FOR MINOR ITCHING CONTINUE BLOOD THINNER AT HOME DC ORDERS GIVEN, PT VERBALIZED UNDERSTANDING . IV DC PRESSURE DRESSING APPLIED AT TAPED PT IS READY FOR DC AT THIS TIME
--- NOTE | 2019-03-27 14:23 | NUR ---
PT OFF UNIT TO HOME VIA WHEEL CHAIR
[2019-03-27] MEDS ORDERED: CELECOXIB 200 MG CAP PO SCH (17:00)
[2019-03-28] MEDS ORDERED: SIMVASTATIN 20 MG TAB PO SCH (21:00)
== END 2019-03-27 14:23 | disposition home or self-care (01) | DRG 465 ==
LOC: OR 08:19 → PACU V 12:38 → MED/SURG 14:01
PROVIDERS: ADMIT Specialist; ATTEND Specialist
PROC: 0SHD08Z Insertion of Spacer into Left Knee Joint, Open Approach (ICD-10-PCS; 2019-03-25)
PROC: 0SPD0JZ Removal of Synthetic Substitute from Left Knee Joint, Open Approach (ICD-10-PCS; principal; 2019-03-25 10:30)
DX: T84.54XA Infection and inflammatory reaction due to internal left knee prosthesis, initial encounter (principal); M17.0 Bilateral primary osteoarthritis of knee
CPT/HCPCS: 36415; 82948; 85014; 85018; 86850; 86900; 86920; 87071; 87205; 88305; 88331; 93005; 97139; C1713; C1776; J0171; J1100; J1885; J2001; J2405; J2795; J3370; J7030; J7040

== ENCOUNTER 2020-03-14 16:21 | Observation (INO) | payer MEDICARE, OTHER ==
[~2020-03-14] VITALS: Ht 175.3 cm; Wt 95.3 kg
[~2020-03-14 16:21] MED LIST changes: -ROPIVACAINE 246.25 MG, EPINEPHRINE HCL 1:1000 1ML 0.5 MG, CLONIDINE HCL 0.08 MG, KETORO... INJ ONE
[2020-03-14] MEDS ORDERED: PANTOPRAZOLE 40 MG 10ML VIAL IV STA (16:29)
[2020-03-14] MEDS ORDERED: ASPIRIN 81 MG CHEW TAB PO ONE (16:30)
--- NOTE | 2020-03-14 17:22 | Diagnostic Imaging Report ---
EXAMINATION: CHEST SINGLE (PORTABLE) INDICATION: ^CP HTN COMPARISON: 12/24/2018 FINDINGS: AP view TUBES and LINES: None. LUNGS: Lungs are well inflated. Minimal atelectasis in both lung bases. Mild bilateral central pulmonary vascular congestion. PLEURA: No pleural effusion or pneumothorax. HEART AND MEDIASTINUM: The cardiac silhouette is mildly enlarged but appears stable. BONES AND SOFT TISSUES: Intact median sternotomy wires. Soft tissues are unremarkable. UPPER ABDOMEN: No free air under the diaphragm. IMPRESSION: Mild bilateral central pulmonary vascular congestion. Signed by: Dr. Melissa Pérez M.D. on 03/14/2020 5:19 PM
[2020-03-14 17:56] LABS: BASOPHILS # (AUTO) 0.1 (0.0-0.1); BASOPHILS % 0.6 % (0.0-1.0); EOSINOPHILS # (AUTO) 0.1 (0.0-0.4); EOSINOPHILS % 0.5 % (0.0-6.0); HEMATOCRIT 51.3 % (38.2-49.6); HEMOGLOBIN 17.3 g/dL (14.0-18.0); LYMPHOCYTES % 9.6 % (18.0-39.1); MEAN CORPUSCULAR HEMOGLOBIN 28.6 pg (28-32); MEAN CORPUSCULAR HGB CONC 33.7 g/dL (31-35); MEAN CORPUSCULAR VOLUME 84.8 fL (81-99); MONOCYTES # (AUTO) 1.1 (0.2-0.8); MONOCYTES % 9.8 % (4.4-11.3); NEUTROPHILS # (AUTO) 8.5 (2.1-6.9); NEUTROPHILS % 78.2 % (38.7-80.0); PLATELET COUNT 193 x10e3/uL (140-360); RED BLOOD COUNT 6.05 x10e6/uL (4.3-5.7); RED CELL DISTRIBUTION WIDTH 12.9 % (11.7-14.4)
[2020-03-14 17:58] LABS: INR 0.88; PROTHROMBIN TIME 12.4 seconds (11.9-14.5)
[2020-03-14 17:59] LABS: PARTIAL THROMBOPLASTIN TIME 32.6 seconds (23.8-35.5)
[2020-03-14] MEDS ORDERED: CLONIDINE HCL 0.1 MG TAB PO ONE (18:00)
[2020-03-14 18:07] LABS: ALANINE AMINOTRANSFERASE 26 IU/L (0-55); ALBUMIN 4.3 g/dL (3.5-5.0); ALBUMIN/GLOBULIN RATIO 1.3 (0.8-2.0); ALKALINE PHOSPHATASE 71 IU/L (40-150); ANION GAP 17.9 mmol/L (8-16); BLOOD UREA NITROGEN 18 mg/dL (7-26); BUN/CREATININE RATIO 12 (6-25); CALCIUM 10.3 mg/dL (8.4-10.2); CARBON DIOXIDE 24 mmol/L (22-29); CHLORIDE 103 mmol/L (98-107); CREATINE KINASE 164 IU/L (30-200); CREATININE, SERUM 1.47 mg/dL (0.72-1.25); EST GLOMERULAR FILTRATION RATE 47 ML/MIN (60-); GLUCOSE 133 mg/dL (74-118); MAGNESIUM 1.5 MG/DL (1.3-2.1); POTASSIUM 3.9 mmol/L (3.5-5.1); SODIUM 141 mmol/L (136-145)
[2020-03-14] MEDS ORDERED: ONDANSETRON HCL INJ 2MG/ML 2ML 2 MG/ML VIAL IV PRN (18:30)
[2020-03-14] MEDS ORDERED: NITROGLYCERIN 0.4 MG SUBL SL PRN (18:30)
[2020-03-14] MEDS: HYDRALAZINE HCL 20 MG/ML VIAL IV PRN ×2 (18:57→23:35)
[2020-03-14] MEDS ORDERED: METOPROLOL SUCC50 MG PO (19:03)
[2020-03-14 20:00] VITALS: BP 206/94
[2020-03-14] MEDS ORDERED: METOPROLOL TARTRATE 25 MG TAB PO SCH (21:00)
[2020-03-14 21:01] VITALS: BP 173/81
[2020-03-14] MEDS: FAMOTIDINE 20 MG/2 ML VIAL IV SCH (22:40)
[2020-03-15] VITALS (11 sets, daily range): BP systolic 140–186; BP diastolic 71–88
[2020-03-15 00:21] LABS: CREATINE KINASE MB 4.5 ng/mL (0-5.0)
[2020-03-15] MEDS: HYDRALAZINE HCL 20 MG/ML VIAL IV PRN (04:45)
[2020-03-15 05:47] LABS: BASOPHILS # (AUTO) 0.1 (0.0-0.1); BASOPHILS % 0.7 % (0.0-1.0); EOSINOPHILS # (AUTO) 0.1 (0.0-0.4); EOSINOPHILS % 1.1 % (0.0-6.0); HEMATOCRIT 50.6 % (38.2-49.6); HEMOGLOBIN 16.8 g/dL (14.0-18.0); LYMPHOCYTES # (AUTO) 1.8 (1.0-3.2); MEAN CORPUSCULAR HEMOGLOBIN 28.5 pg (28-32); MEAN CORPUSCULAR HGB CONC 33.2 g/dL (31-35); MEAN CORPUSCULAR VOLUME 85.8 fL (81-99); MONOCYTES # (AUTO) 1.5 (0.2-0.8); MONOCYTES % 15.5 % (4.4-11.3); NEUTROPHILS # (AUTO) 6.4 (2.1-6.9); NEUTROPHILS % 64.1 % (38.7-80.0); PLATELET COUNT 208 x10e3/uL (140-360); RED CELL DISTRIBUTION WIDTH 13.1 % (11.7-14.4)
--- NOTE | 2020-03-15 05:55 | NUR ---
PROVIDED BARRIER CREAM FOR SACRAL RASH.
[2020-03-15 06:20] LABS: CREATINE KINASE MB 4.9 ng/mL (0-5.0)
[2020-03-15] MEDS ORDERED: LOSARTAN/HCTZ PO (06:30)
[2020-03-15 06:48] LABS: ALBUMIN 3.9 g/dL (3.5-5.0); ALBUMIN/GLOBULIN RATIO 1.3 (0.8-2.0); ANION GAP 14.4 mmol/L (8-16); CREATININE, SERUM 1.5 mg/dL (0.72-1.25); POTASSIUM 4.4 mmol/L (3.5-5.1)
--- NOTE | 2020-03-15 07:10 | NUR ---
REPORT GIVEN TO [facility] NURSE. AAOX3. RESTING IN BED. L HAND SALINE LOCK. NO SIGNS OF INFILTRATION. SR UPX2. BED LOCKED AND IN LOW POSITION. CALL LIGHT WITHIN REACH.
--- NOTE | 2020-03-15 07:14 | NUR ---
ASSUMED CARE. PATIENT AAOX3. ACYANOTIC. RESTING IN BED. NO DISTRESS NOTED. CALL LIGHT IN REACH. SIDE RAILS UP X2. BED LOW.
[2020-03-15 07:21] LABS: EOSINOPHILS % (MANUAL) 1 % (0-7); LYMPHOCYTES % (MANUAL) 13 % (19-48); MONOCYTES % (MANUAL) 15 % (3.4-9.0); NEUTROPHILS % (MANUAL) 62 % (40-74); PLATELET ESTIMATE ADEQUATE; PLATELET MORPHOLOGY COMMENT NORMAL; RBC MORPHOLOGY COMMENT NORMAL
[2020-03-15 07:35] LABS: MAGNESIUM 1.6 MG/DL (1.3-2.1)
[2020-03-15 07:55] LABS: THYROID STIMULATING HORMONE 2.94 uIU/mL (0.350-4.940)
[2020-03-15] MEDS ORDERED: ASPIRIN 325 MG TAB PO SCH (09:00)
[2020-03-15] MEDS ORDERED: ASPIRIN 81 MG ENTERIC COATED PO SCH (09:00)
[2020-03-15] MEDS ORDERED: CLOPIDOGREL BISULFATE 75 MG TAB PO SCH (09:00)
[2020-03-15] MEDS ORDERED: CLONIDINE HCL 0.2 MG TAB PO SCH (09:00)
[2020-03-15] MEDS ORDERED: GLIMEPIRIDE 2 MG TAB PO SCH (09:00)
[2020-03-15] MEDS: FAMOTIDINE 20 MG/2 ML VIAL IV SCH ×2 (09:13→20:32)
[2020-03-15] MEDS: TAMSULOSIN HCL 0.4 MG CAP PO SCH (09:14)
[2020-03-15] MEDS: CLOPIDOGREL BISULFATE 75 MG TAB PO SCH (09:14)
[2020-03-15] MEDS: METOPROLOL SUCCINATE 50 MG TAB XL PO SCH (09:14)
[2020-03-15] MEDS: CHOLECALCIFEROL 400 UNIT TAB PO SCH (09:14)
--- NOTE | 2020-03-15 10:47 | Diagnostic Imaging Report ---
EXAM: Renal Ultrasound INDICATION: ^hypertension ^[id number] ^[id number] COMPARISON: None TECHNIQUE: Transverse and longitudinal images of the kidneys and bladder were obtained. FINDINGS: Right Kidney: Length: 10.1 cm Appearance: Normal echogenicity. Collecting system: No hydronephrosis Stones: None Cyst/Mass: None Left Kidney: Length: 11.8 cm Appearance: Normal echogenicity. Collecting system: No hydronephrosis Stones: None Cyst/Mass: None Bladder: No mass or calculi. Bilateral ureteral jets visualized. Prevoid volume estimate of 102.7 cc. The prostate measures 3.0 x 1.7 x 3.2 cm with volume estimate of 9 cc. IMPRESSION: Unremarkable renal ultrasound. Signed by: Anum Hampton MD on 03/15/2020 10:43 AM
--- NOTE | 2020-03-15 11:05 | NUR ---
Pt. expressed no spiritual or emotional concerns at this time. [facility] [employer] [facility] provided hospitality and information about availability of [facility] [employer] [facility] services and how to reach sword swallower, if needed. No need to follow at this time. JIMMIE CASTILLO [facility] Spiritual Care Department O: [phone]
[2020-03-15] MEDS: SODIUM CHLORIDE 0.9% 1000ML 1,000 ML IV SCH ×2 (11:22→20:32)
[2020-03-15] MEDS: AMLODIPINE BESYLATE 5 MG TAB PO SCH (11:22)
--- NOTE | 2020-03-15 11:48 | Consultation ---
DATE OF CONSULTATION: Cardiac Consultation REASON FOR CONSULTATION: Severe uncontrolled hypertension, chest pain. HISTORY OF PRESENT ILLNESS: A 75-year-old gentleman, who is known with hypertension, coronary artery disease status post bypass surgery and PCI postoperatively, abdominal aortic aneurysm, diabetes mellitus, hypercholesteremia. The patient for the last few days noted quite a lot of elevation of blood pressure. He was very alarmed by it. He went to the emergency room, blood pressure was 210/120, admitted, Cardiac consultation is obtained. He denied having angina. He walks with a cane. He does have class 3B symptoms of shortness of breath on exertion with easy fatigability as well as symptoms to suggest sleep apnea. He does have mild peripheral edema. His chest pain is very atypical every now and then over his right breast. There is definitely no angina. There is easy fatigability and sleep apnea symptoms. REVIEW OF SYSTEMS: GENERAL: No fever. No chills. HEENT: No vision problem. No hearing problem. PULMONARY AND CARDIAC: As per acute illness. Occasional cough. No orthopnea. No paroxysmal nocturnal dyspnea. GI: No hematemesis. No melena. HEMATOLOGY: No easy bruising or bleeding. : No frequency. No hematuria. MUSCULOSKELETAL: Back pain, knee pain. PERIPHERAL VASCULAR: No definite claudication, but activities are limited. He walks with a cane because of his knee problems and prior fracture of the leg. NEUROLOGIC: No memory loss. No seizure activity. HOME MEDICATIONS: 1. Aspirin 81 mg a day. 2. Plavix 75 mg a day. 3. Crestor 10 mg a day. 4. Toprol-XL 25 mg a day. 5. Losartan/hydrochlorothiazide 100/25 one tablet a day. 6. Clonidine 0.2 mg 4 times a day. 7. Flomax 0.4 mg a day. 8. Vitamin D. 9. Other medications. ALLERGIES: CODEINE, MORPHINE, TRAMADOL. PAST MEDICAL HISTORY: 1. Longstanding history of CAD and PCI in the past and developed several myocardial infarction dating back to the early . 2. Coronary artery bypass surgery in 2000 with GOLDMAN to LAD, saphenous venous graft to the PDA, saphenous venous graft to the OM. 3. PCI and stenting in 2004 to the circumflex coronary artery using 2.5 x 18, 2.5 x 8, 2.5 x 8, and PCI using 2.25 x 26 integrity in 2012 to the circumflex. 4. Diabetes mellitus. 5. Subdural hematoma twice. 6. Prostate cancer, treated with radiation. 7. Gout. 8. Left tibial fracture surgery. 9. Abdominal aortic aneurysm. 10. Hypertension. 11. Hypercholesteremia. 12. Knee replacement in March 2019. SOCIAL HISTORY: He is . He stopped smoking in 1994. He is social alcohol drinker. 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 FAMILY HISTORY: Father with cancers. He had bypass surgery at young age at age 63. Mother at 75. She also had bypass surgery at younger age. She was diabetic, hypertensive. Ten siblings, several with coronary artery disease and diabetes. PHYSICAL EXAMINATION: VITAL: Height of 5 feet 9 inches, weight of 210 pounds, blood pressure 110/70, heart rate of 60, respiratory rate of 18, afebrile. HEENT: Pupils are equal and reactive. NECK: No elevation of jugular venous pulsation. CHEST: Clear to auscultation and percussion. Scar of previous sternotomy is noted. HEART: PMI in 5th left intercostal space. Normal first and second heart sounds. ABDOMEN: Soft. EXTREMITIES: Decreased scant pulses. SKIN: There are several spots and several changes on the lower extremity. NEUROLOGIC: The patient walk with a cane, but no motor deficits. LABORATORY DATA: Sodium of 141, potassium 4.4, BUN of 17 and creatinine of 1.5. White blood cell count of 9.9, hemoglobin 16.8, hematocrit 50%, platelet count of 208,000. Lipid profile; triglycerides of 173, cholesterol of 117, HDL of 39, LDL 43. TSH 2.98. BNP of only 171. Chest x-ray, clear lung lanier. IMPRESSION AND PLAN: 1. Accelerated severe hypertension. 2. Coronary artery disease with stable angina, status post bypass surgery and percutaneous coronary intervention. 3. Peripheral arterial/vascular disease. 4. Diabetes mellitus. 5. Abdominal aortic aneurysm. 6. Chronic renal insufficiency. 7. Hypercholesteremia. Cardiac quintanilla, my recommendation to adjust medication. We will add Norvasc to his clonidine, beta-blockers, losartan, and hydrochlorothiazide. We will follow the patient's blood pressure with you. We will check CT abdomen for followup on his abdominal aortic aneurysm. We will continue cardiac medication. I will review the echocardiogram ordered by Dr. Watson. MD NIKHIL Szymanski/MONSE /[id number]
[2020-03-15] MEDS ORDERED: IOPAMIDOL 370 MG/ML 200 ML INFUS..BTL INJ ONE (12:17)
[2020-03-15] MEDS ORDERED: SODIUM CHLORIDE 0.9% 100 ML ONE (12:17)
--- NOTE | 2020-03-15 14:50 | Diagnostic Imaging Report ---
Abdomen and Pelvis CTA WITH AND WITHOUT IV CONTRAST. INDICATION: Abdominal aortic aneurysm COMPARISON: None. TECHNIQUE: Abdomen and pelvis were scanned utilizing a multidetector helical scanner from the lung base to the pubic symphysis before and after administration of IV contrast. Coronal and sagittal reformations were obtained. 3D post-processing of the images was performed, and the post-processed images were used in interpretation. CTA runoff protocol was performed. IV CONTRAST: 100mL of Isovue 370 ORAL CONTRAST: None RADIATION DOSE: Total DLP: 649 mGy*cm FINDINGS: VESSELS: There are moderate calcified and noncalcified atherosclerotic plaques in the aorta and its major branches. There is no evidence of a flap within the aorta to suggest a dissection. Fusiform infrarenal abdominal aortic aneurysm originates approximately 3 cm below the level of the renal artery origin and measures up to 4.6 cm maximum diameter. There is extensive mural thrombus. The common iliac arteries are patent and nonaneurysmal with moderate calcified and noncalcified atherosclerotic plaque resulting in mild to moderate narrowing on the right and mild narrowing on the left. Both right and left common femoral arteries are patent and measure up to 7 mm in diameter. The celiac artery and SMA are patent. There are 2 left and 2 right renal arteries, all of which are patent. The [place] appears to be supplied by collaterals. NON-VASCULAR: LOWER THORAX:Unremarkable. HEPATOBILIARY: Mild diffuse hepatic steatosis. No focal liver lesion. No biliary ductal dilation. Status post cholecystectomy. SPLEEN: No splenomegaly. PANCREAS: No focal masses or ductal dilatation. ADRENALS: No adrenal nodules. KIDNEYS/URETERS: No hydronephrosis, stones, or solid mass lesions. PELVIC ORGANS/BLADDER: Unremarkable. PERITONEUM / RETROPERITONEUM: No free air or fluid. LYMPH NODES: No lymphadenopathy. GI TRACT: Diverticulosis without CT evidence of diverticulitis. No abnormal bowel thickening. No bowel obstruction. Normal appendix. BONES AND SOFT TISSUES: No acute osseous injury. No suspicious lytic or blastic lesions. IMPRESSION: Fusiform infrarenal abdominal aortic aneurysm originates approximately 3 cm below the level of the renal artery origin and measures up to 4.6 cm maximum diameter. Both right and left common femoral arteries are patent and measure up to 7 mm in diameter. Recommend follow-up CTA in 12 months to assess for stability. Mild diffuse hepatic steatosis. Diverticulosis without CT evidence of diverticulitis. Signed by: Anum Hampton MD on 03/15/2020 2:47 PM
[2020-03-15] MEDS: CLONIDINE HCL 0.2 MG TAB PO SCH ×2 (15:50→22:10)
[2020-03-15 16:21] LABS: CREATINE KINASE 181 IU/L (30-200)
[2020-03-15] MEDS ORDERED: DEXTROSE 50% SYRINGE 50 ML IV PRN (17:30)
--- NOTE | 2020-03-15 19:10 | NUR ---
Bedside report and walking rounds completed with off going nurse. Patient in bed with call light within reach. No issues or concerns noted. Will continue to monitor closely.
[2020-03-15] MEDS: INSULIN LISPRO 100 UNIT/1 ML 3ML VIAL SQ SCH (20:33)
[2020-03-15] MEDS ORDERED: LOSARTAN POTASSIUM 100 MG TAB PO SCH ×2 (21:00)
[2020-03-15] MEDS ORDERED: SIMVASTATIN 20 MG TAB PO SCH (21:00)
[2020-03-15] MEDS ORDERED: HYDROCHLOROTHIAZIDE 25 MG TAB PO SCH (21:00)
[2020-03-16] VITALS: BP 153/70
[2020-03-16 04:00] VITALS: BP 121/60
[2020-03-16 05:47] LABS: BASOPHILS # (AUTO) 0.1 (0.0-0.1); BASOPHILS % 1.1 % (0.0-1.0); EOSINOPHILS # (AUTO) 0.2 (0.0-0.4); EOSINOPHILS % 2.5 % (0.0-6.0); HEMATOCRIT 46.2 % (38.2-49.6); HEMOGLOBIN 15.4 g/dL (14.0-18.0); LYMPHOCYTES # (AUTO) 1.8 (1.0-3.2); LYMPHOCYTES % 24.1 % (18.0-39.1); MEAN CORPUSCULAR HEMOGLOBIN 28.7 pg (28-32); MEAN CORPUSCULAR HGB CONC 33.3 g/dL (31-35); MEAN CORPUSCULAR VOLUME 86.2 fL (81-99); MONOCYTES # (AUTO) 1.1 (0.2-0.8); MONOCYTES % 14.7 % (4.4-11.3); NEUTROPHILS # (AUTO) 4.3 (2.1-6.9); NEUTROPHILS % 57.2 % (38.7-80.0); PLATELET COUNT 188 x10e3/uL (140-360); RED BLOOD COUNT 5.36 x10e6/uL (4.3-5.7); RED CELL DISTRIBUTION WIDTH 13.3 % (11.7-14.4)
[2020-03-16 06:07] LABS: ALBUMIN 3.4 g/dL (3.5-5.0); ALBUMIN/GLOBULIN RATIO 1.2 (0.8-2.0); CALCIUM 9.2 mg/dL (8.4-10.2); CREATININE, SERUM 1.58 mg/dL (0.72-1.25)
[2020-03-16 06:16] VITALS: BP 141/66
[2020-03-16] MEDS: CLONIDINE HCL 0.2 MG TAB PO SCH (06:16)
[2020-03-16 06:19] LABS: CHOL/HDL RATIO 3.3 (3.9-4.7)
[2020-03-16 06:21] LABS: THYROID STIMULATING HORMONE 3.992 uIU/mL (0.350-4.940)
[2020-03-16] MEDS: SODIUM CHLORIDE 0.9% 1000ML 1,000 ML IV SCH (06:31)
[2020-03-16] MEDS ORDERED: CLONIDINE HCL0.2 MG PO (06:42)
--- NOTE | 2020-03-16 06:59 | NUR ---
Bedside report and walking rounds completed with on coming nurse. Patient in bed with call light within reach. No issues or concerns noted.
--- NOTE | 2020-03-16 07:10 | Progress Note ---
DATE: SUBJECTIVE: The patient is a 75-year-old, who came in with elevated blood pressure. Echocardiogram was done, that showed preserved EF at 55% with concentric LVH, on some blood pressure medicine in addition of calcium channel nixon, Norvasc has been done and also clonidine has been taken down to 3 times a day. No complaints from the patient. CTA angio was done, which shows the presence of an abdominal aorta of 4.76 cm, which has not changed since the last examination. Renal ultrasound was good. Additional findings on the CT scan showed mild diffuse hepatic steatosis. No focal liver lesions. OBJECTIVE: VITAL SIGNS: The patient's temperature is 97.6, blood pressure is 141/66, pulse oximetry of 95%. HEENT: Normocephalic and atraumatic. Pupils are reactive. CVS: S1 and S2 normal. Regular rate and rhythm. ABDOMEN: Nontender, nondistended. EXTREMITIES: No clubbing, no cyanosis, no edema. ASSESSMENT: Mr. Sabino Knight is a 75-year-old male with: 1. Elevated blood pressure, can be discharged and changes have been done. We would be decreasing the clonidine to 3 times a day and adding Norvasc. 2. Abdominal aortic aneurysm, stable. Repeat in 1 year. 3. Fatty liver. The patient has been advised to decrease fat consumption and also increase his exercise to improvise on his cardiac compliance. 4. Diabetes mellitus. Continue same medication. 5. Hyperlipidemia. Continue on statin. For further recommendation, look into the chart. The patient can be discharged. Follow up with Dr. Mendoza and Dr. Yuan in about a week's time. MD CANDICE Raymond/LUCIOL /[id number]
[2020-03-16] MEDS: INSULIN LISPRO 100 UNIT/1 ML 3ML VIAL SQ SCH (07:30)
[2020-03-16] MEDS ORDERED: GLIMEPIRIDE 2 MG TAB PO SCH (07:30)
[2020-03-16] MEDS ORDERED: ONDANSETRON HCL 4 MG ORAL DISINTEGRATING TAB PO PRN (08:00)
[2020-03-16 08:03] VITALS: BP 125/66
[2020-03-16] MEDS: METOPROLOL SUCCINATE 50 MG TAB XL PO SCH (08:24)
[2020-03-16] MEDS: AMLODIPINE BESYLATE 5 MG TAB PO SCH (08:24)
[2020-03-16] MEDS: FAMOTIDINE 20 MG/2 ML VIAL IV SCH (08:24)
[2020-03-16] MEDS: TAMSULOSIN HCL 0.4 MG CAP PO SCH (08:24)
[2020-03-16] MEDS: CHOLECALCIFEROL 400 UNIT TAB PO SCH (08:24)
[2020-03-16] MEDS: CLOPIDOGREL BISULFATE 75 MG TAB PO SCH (08:24)
[2020-03-16 08:47] VITALS: BP 125/66
[2020-03-16] MEDS ORDERED: ASPIRIN 81 MG CHEW TAB PO SCH (09:00)
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
[2020-03-16 11:46] VITALS: BP 178/77
== END 2020-03-16 12:04 | disposition home or self-care (01) ==
LOC: ER 16:21 → ERHOLD 18:17 → MED/SURG 19:42
PROVIDERS: ADMIT Family Medicine; ATTEND Family Medicine
DX: I16.1 Hypertensive emergency (principal); I25.118 Atherosclerotic heart disease of native coronary artery with other forms of angina pectoris; R07.9 Chest pain, unspecified; E11.22 Type 2 diabetes mellitus with diabetic chronic kidney disease; N18.9 Chronic kidney disease, unspecified; E78.5 Hyperlipidemia, unspecified; C61 Malignant neoplasm of prostate; F17.210 Nicotine dependence, cigarettes, uncomplicated; Z95.5 Presence of coronary angioplasty implant and graft; Z88.5 Allergy status to narcotic agent; Z79.82 Long term (current) use of aspirin; Z79.84 Long term (current) use of oral hypoglycemic drugs; Z95.1 Presence of aortocoronary bypass graft; Z84.89 Family history of other specified conditions; Z82.49 Family history of ischemic heart disease and other diseases of the circulatory system; I71.4 Abdominal aortic aneurysm, without rupture; Z83.3 Family history of diabetes mellitus; I12.9 Hypertensive chronic kidney disease with stage 1 through stage 4 chronic kidney disease, or unspecified chronic kidney disease; E11.51 Type 2 diabetes mellitus with diabetic peripheral angiopathy without gangrene; E78.00 Pure hypercholesterolemia, unspecified; K76.0 Fatty (change of) liver, not elsewhere classified
CPT/HCPCS: 36415 ×3; 71045; 74174; 76770; 80053 ×3; 80061 ×2; 82270; 82550 ×2; 82553 ×2; 82948 ×3; 83036; 83735 ×2; 83880; 84443 ×2; 84484 ×2; 85025 ×3; 85610; 85730; 93005; 93306; 99284; C9113; G0378 ×3; J0360 ×2; J2405; J7030 ×2; J7050; Q9967

== ENCOUNTER → 2021-12-06 | Outpatient (CLI) | payer MEDICARE, OTHER ==
[~2021-12-06] MED LIST changes: +LOSARTAN/HCTZ PO; +METOPROLOL SUCC50 MG PO
[2021-12-06 13:06] LABS: BASOPHILS # (AUTO) 0.1 (0.0-0.1); BASOPHILS % 0.8 % (0.0-1.0); EOSINOPHILS # (AUTO) 0.2 (0.0-0.4); EOSINOPHILS % 1.8 % (0.0-6.0); HEMATOCRIT 50.4 % (38.2-49.6); HEMOGLOBIN 16.1 g/dL (14.0-18.0); LYMPHOCYTES # (AUTO) 1.6 (1.0-3.2); LYMPHOCYTES % 18.5 % (18.0-39.1); MEAN CORPUSCULAR HEMOGLOBIN 28.1 pg (28-32); MEAN CORPUSCULAR HGB CONC 31.9 g/dL (31-35); MONOCYTES # (AUTO) 1.1 (0.2-0.8); MONOCYTES % 12.8 % (4.4-11.3); NEUTROPHILS # (AUTO) 5.6 (2.1-6.9); NEUTROPHILS % 65.9 % (38.7-80.0); PLATELET COUNT 216 x10e3/uL (140-360); RED BLOOD COUNT 5.73 x10e6/uL (4.3-5.7); RED CELL DISTRIBUTION WIDTH 13.2 % (11.7-14.4)
[2021-12-06 13:27] LABS: ALBUMIN 4.2 g/dL (3.5-5.0); ALBUMIN/GLOBULIN RATIO 1.1 (0.8-2.0); ANION GAP 15.9 mmol/L (8-16); CALCIUM 10.3 mg/dL (8.4-10.2); CHOL/HDL RATIO 2.6 (3.9-4.7); CREATININE, SERUM 1.68 mg/dL (0.72-1.25); POTASSIUM 3.9 mmol/L (3.5-5.1)
== END ==
LOC: CT 12:13
PROVIDERS: ATTEND Internal Medicine Cardiovascular Disease
DX: I71.4 Abdominal aortic aneurysm, without rupture (principal)
CPT/HCPCS: 36415; 74176; 80053; 80061; 85025

== ENCOUNTER 2023-12-03 17:26 | Inpatient (IN) | payer MEDICARE, OTHER ==
[~2023-12-03] VITALS: Ht 175.3 cm; Wt 95.3 kg
[2023-12-03] MEDS ORDERED: LACTATED RINGER'S 1,000 ML INJ SCH (19:00)
[2023-12-03] MEDS ORDERED: ACETAMINOPHEN 1000 MG/100 ML IV STA (19:55)
[2023-12-03] MEDS ORDERED: ACETAMINOPHEN 1000 MG/100 ML 100 ML IV ONE (19:58)
[2023-12-03 20:30] LABS: BASOPHILS % 0.2 % (0.0-1.0); EOSINOPHILS % 0.1 % (0.0-6.0); HEMOGLOBIN 15.5 g/dL (14.0-18.0); LYMPHOCYTES # (AUTO) 0.4 (1.0-3.2); LYMPHOCYTES % 2.9 % (18.0-39.1); MEAN CORPUSCULAR HEMOGLOBIN 28.5 pg (28-32); MEAN CORPUSCULAR HGB CONC 34.4 g/dL (31-35); MEAN CORPUSCULAR VOLUME 82.7 fL (81-99); MONOCYTES # (AUTO) 0.7 (0.2-0.8); MONOCYTES % 5.3 % (4.4-11.3); NEUTROPHILS # (AUTO) 11.2 (2.1-6.9); NEUTROPHILS % 90.9 % (38.7-80.0); PLATELET COUNT 253 x10e3/uL (140-360); RED BLOOD COUNT 5.44 x10e6/uL (4.3-5.7); RED CELL DISTRIBUTION WIDTH 13.6 % (11.7-14.4); WHITE BLOOD COUNT 12.32 x10e3/uL (4.8-10.8)
[2023-12-03] MEDS ORDERED: ASPIRIN 81 MG CHEW TAB PO ONE (20:30)
[2023-12-03 20:49] LABS: ALBUMIN 2.7 g/dL (3.5-5.0); ALBUMIN/GLOBULIN RATIO 0.5 (0.8-2.0); ANION GAP 20.8 mmol/L (8-16); BILIRUBIN,TOTAL 0.4 mg/dL (0.2-1.2); CREATININE, SERUM 2.19 mg/dL (0.72-1.25); TOTAL PROTEIN 8.1 g/dL (6.5-8.1)
[2023-12-03 20:57] LABS: TROPONIN I 0.035 ng/mL (0-0.300)
[2023-12-03 21:00] LABS: POTASSIUM 2.8 mmol/L (3.5-5.1)
[2023-12-03] MEDS ORDERED: POTASSIUM CHLORIDE 20 MEQ TAB CR PO STA (21:02)
[2023-12-03 22:30] VITALS: PULSE 103; RESP 20; O2SAT 95
[2023-12-03] MEDS: SODIUM CHLORIDE 0.9% 1000ML 1,000 ML IV SCH (23:16)
[2023-12-04 02:46] LABS: TROPONIN I 0.056 ng/mL (0-0.300)
[2023-12-04] MEDS: SODIUM CHLORIDE 0.9% 1000ML 1,000 ML IV SCH ×3 (04:24→18:11)
[2023-12-04] MEDS ORDERED: LEVOTHYROXINE50 MCG PO (04:51)
[2023-12-04] MEDS ORDERED: METOPROLOL SUCC25 MG PO (04:53)
[2023-12-04] MEDS ORDERED: AMLODIPINE BESY10 MG PO (04:53)
[2023-12-04] MEDS ORDERED: ALLOPURINOL300 MG PO (04:56)
[2023-12-04] MEDS ORDERED: AMLODIPINE BESYLATE 10 MG TAB ONE (06:33)
[2023-12-04] MEDS ORDERED: CLONIDINE HCL 0.2 MG TAB ONE (06:36)
[2023-12-04] MEDS: CLONIDINE HCL 0.2 MG TAB PO SCH ×3 (06:37→20:47)
[2023-12-04] MEDS: AMLODIPINE BESYLATE 10 MG TAB PO SCH (06:37)
[2023-12-04] MEDS: ACETAMINOPHEN 325 MG TAB PO PRN ×3 (07:45→23:13)
[2023-12-04 09:59] LABS: TROPONIN I 0.064 ng/mL (0-0.300)
[2023-12-04 17:30] VITALS: BP 155/86; PULSE 103; RESP 20; O2SAT 94
[2023-12-04 18:34] VITALS: BP 155/86; PULSE 93; RESP 17; TEMP 98.8; O2SAT 94
[2023-12-04] MEDS: ALBUTEROL/IPRATROPIUM 3 ML NEB NEB SCH (19:00)
[2023-12-04] MEDS ORDERED: VITAMIN C1000 MG PO (19:29)
[2023-12-04 20:00] VITALS: BP 164/78; PULSE 98; RESP 20; TEMP 97.2; O2SAT 94
[2023-12-04] MEDS: ASCORBIC ACID 500 MG TAB PO SCH (20:45)
[2023-12-04] MEDS: LOSARTAN POTASSIUM 100 MG TAB PO SCH (20:46)
[2023-12-04] MEDS: HYDROCHLOROTHIAZIDE 25 MG TAB PO SCH (20:46)
[2023-12-04 23:00] VITALS: BP 169/81; PULSE 102; RESP 20; TEMP 100.4; O2SAT 89
[2023-12-05] VITALS (7 sets, daily range): BP systolic 109–140; BP diastolic 57–80; PULSE 63–96; RESP 18–19; TEMP 97.4–98.5; O2SAT 94–97
[2023-12-05] MEDS: ALBUTEROL/IPRATROPIUM 3 ML NEB NEB SCH ×4 (01:00→19:00)
[2023-12-05] MEDS: LEVOTHYROXINE SODIUM 25 MCG TABLET PO SCH (05:39)
[2023-12-05] MEDS: SODIUM CHLORIDE 0.9% 1000ML 1,000 ML IV SCH ×3 (05:42→19:19)
[2023-12-05 05:59] LABS: BASOPHILS # (AUTO) 0.1 (0.0-0.1); BASOPHILS % 0.4 % (0.0-1.0); EOSINOPHILS % 0.1 % (0.0-6.0); HEMATOCRIT 43.1 % (38.2-49.6); HEMOGLOBIN 14.4 g/dL (14.0-18.0); LYMPHOCYTES % 7.1 % (18.0-39.1); MEAN CORPUSCULAR HEMOGLOBIN 28.7 pg (28-32); MEAN CORPUSCULAR HGB CONC 33.4 g/dL (31-35); MEAN CORPUSCULAR VOLUME 85.9 fL (81-99); MONOCYTES # (AUTO) 0.8 (0.2-0.8); NEUTROPHILS # (AUTO) 11.5 (2.1-6.9); NEUTROPHILS % 85.8 % (38.7-80.0); PLATELET COUNT 235 x10e3/uL (140-360); RED BLOOD COUNT 5.02 x10e6/uL (4.3-5.7); RED CELL DISTRIBUTION WIDTH 13.3 % (11.7-14.4); WHITE BLOOD COUNT 13.45 x10e3/uL (4.8-10.8)
[2023-12-05 06:46] LABS: ALBUMIN/GLOBULIN RATIO 0.5 (0.8-2.0); ANION GAP 13.7 mmol/L (8-16); BILIRUBIN,TOTAL 0.5 mg/dL (0.2-1.2); CREATININE, SERUM 1.58 mg/dL (0.72-1.25); MAGNESIUM 1.8 MG/DL (1.3-2.1); TOTAL PROTEIN 6.4 g/dL (6.5-8.1)
[2023-12-05 06:54] LABS: POTASSIUM 2.7 mmol/L (3.5-5.1)
[2023-12-05] MEDS: GLIMEPIRIDE 2 MG TAB PO SCH ×2 (08:00→17:00)
[2023-12-05] MEDS ORDERED: VITAMIN C PO SCH (09:00)
[2023-12-05] MEDS ORDERED: CHOLECALCIFEROL PO SCH (09:00)
[2023-12-05] MEDS: TAMSULOSIN HCL 0.4 MG CAP PO SCH (10:05)
[2023-12-05] MEDS: ALLOPURINOL 300 MG TAB PO SCH (10:05)
[2023-12-05] MEDS: ASCORBIC ACID 500 MG TAB PO SCH ×2 (10:05→21:15)
[2023-12-05] MEDS: ASPIRIN 325 MG TAB PO SCH (10:06)
[2023-12-05] MEDS: AMLODIPINE BESYLATE 10 MG TAB PO SCH (10:06)
[2023-12-05] MEDS: METOPROLOL SUCCINATE 25 MG TAB XL PO SCH (10:07)
[2023-12-05] MEDS: CHOLECALCIFEROL 400 UNIT TAB PO SCH (10:08)
[2023-12-05] MEDS: CLONIDINE HCL 0.2 MG TAB PO SCH ×3 (10:08→21:16)
[2023-12-05] MEDS: CLOPIDOGREL BISULFATE 75 MG TAB PO SCH (10:08)
[2023-12-05] MEDS ORDERED: ENOXAPARIN SOD INJ 40 MG/0.4 ML SYR SC SCH (17:00)
[2023-12-05] MEDS ORDERED: POTASSIUM CHLORIDE 20 MEQ TAB CR PO ONE (18:59)
[2023-12-05] MEDS: LOSARTAN POTASSIUM 100 MG TAB PO SCH (21:15)
[2023-12-05] MEDS: HYDROCHLOROTHIAZIDE 25 MG TAB PO SCH (21:15)
[2023-12-05] MEDS: SIMVASTATIN 20 MG TAB PO SCH (21:16)
[2023-12-05] MEDS: POTASSIUM CHLORIDE 20MEQ/100ML 100 ML IV SCH ×2 (21:34→23:31)
[2023-12-05] MEDS: ACETAMINOPHEN 325 MG TAB PO PRN (21:41)
[2023-12-06] VITALS (7 sets, daily range): BP systolic 116–158; BP diastolic 59–67; PULSE 66–103; RESP 18–24; TEMP 97.6–99.3; O2SAT 90–95
[2023-12-06] MEDS: ALBUTEROL/IPRATROPIUM 3 ML NEB NEB SCH ×4 (01:00→19:00)
[2023-12-06] MEDS: LEVOTHYROXINE SODIUM 25 MCG TABLET PO SCH (05:58)
[2023-12-06 06:15] LABS: BASOPHILS # (AUTO) 0.1 (0.0-0.1); BASOPHILS % 0.7 % (0.0-1.0); EOSINOPHILS # (AUTO) 0.1 (0.0-0.4); EOSINOPHILS % 1.4 % (0.0-6.0); LYMPHOCYTES # (AUTO) 0.7 (1.0-3.2); LYMPHOCYTES % 9.4 % (18.0-39.1); MEAN CORPUSCULAR HEMOGLOBIN 28.1 pg (28-32); MEAN CORPUSCULAR HGB CONC 32.4 g/dL (31-35); MEAN CORPUSCULAR VOLUME 86.7 fL (81-99); MONOCYTES # (AUTO) 0.7 (0.2-0.8); MONOCYTES % 9.2 % (4.4-11.3); NEUTROPHILS # (AUTO) 5.7 (2.1-6.9); NEUTROPHILS % 77.5 % (38.7-80.0); PLATELET COUNT 244 x10e3/uL (140-360); RED BLOOD COUNT 4.27 x10e6/uL (4.3-5.7); RED CELL DISTRIBUTION WIDTH 13.6 % (11.7-14.4); WHITE BLOOD COUNT 7.37 x10e3/uL (4.8-10.8)
[2023-12-06 06:37] LABS: ALBUMIN 1.7 g/dL (3.5-5.0); ALBUMIN/GLOBULIN RATIO 0.4 (0.8-2.0); ANION GAP 11.2 mmol/L (8-16); BILIRUBIN,TOTAL 0.3 mg/dL (0.2-1.2); CALCIUM 8.5 mg/dL (8.4-10.2); CREATININE, SERUM 1.47 mg/dL (0.72-1.25); MAGNESIUM 1.8 MG/DL (1.3-2.1); TOTAL PROTEIN 5.6 g/dL (6.5-8.1)
[2023-12-06 06:40] LABS: POTASSIUM 3.2 mmol/L (3.5-5.1)
[2023-12-06] MEDS: GLIMEPIRIDE 2 MG TAB PO SCH ×2 (08:40→17:01)
[2023-12-06] MEDS: TAMSULOSIN HCL 0.4 MG CAP PO SCH (08:41)
[2023-12-06] MEDS: AMLODIPINE BESYLATE 10 MG TAB PO SCH (08:41)
[2023-12-06] MEDS: CLONIDINE HCL 0.2 MG TAB PO SCH ×3 (08:41→21:57)
[2023-12-06] MEDS: ASCORBIC ACID 500 MG TAB PO SCH ×2 (08:42→21:55)
[2023-12-06] MEDS: CLOPIDOGREL BISULFATE 75 MG TAB PO SCH (08:42)
[2023-12-06] MEDS: CHOLECALCIFEROL 400 UNIT TAB PO SCH (08:42)
[2023-12-06] MEDS: METOPROLOL SUCCINATE 25 MG TAB XL PO SCH (08:43)
[2023-12-06] MEDS: ALLOPURINOL 300 MG TAB PO SCH (08:43)
[2023-12-06] MEDS: ASPIRIN 325 MG TAB PO SCH (08:46)
[2023-12-06] MEDS ORDERED: POTASSIUM CHLORIDE 20 MEQ TAB CR PO ONE (15:15)
[2023-12-06] MEDS: SODIUM CHLORIDE 0.9% 1000ML 1,000 ML IV SCH (20:24)
[2023-12-06] MEDS: AZITHROMYCIN 250 MG TAB PO SCH (20:25)
[2023-12-06] MEDS: HYDROCHLOROTHIAZIDE 25 MG TAB PO SCH (21:56)
[2023-12-06] MEDS: LOSARTAN POTASSIUM 100 MG TAB PO SCH (21:57)
[2023-12-06] MEDS: SIMVASTATIN 20 MG TAB PO SCH (21:59)
[2023-12-07] VITALS (8 sets, daily range): BP systolic 121–158; BP diastolic 58–69; PULSE 64–87; RESP 17–20; TEMP 98.1–100.6; O2SAT 91–96
[2023-12-07] MEDS: SODIUM CHLORIDE 0.9% 1000ML 1,000 ML IV SCH ×2 (00:21→13:41)
[2023-12-07] MEDS: ALBUTEROL/IPRATROPIUM 3 ML NEB NEB SCH ×4 (01:00→19:00)
[2023-12-07] MEDS: LEVOTHYROXINE SODIUM 25 MCG TABLET PO SCH (05:50)
[2023-12-07 06:34] LABS: ANION GAP 16.4 mmol/L (8-16); CALCIUM 8.8 mg/dL (8.4-10.2); CREATININE, SERUM 1.32 mg/dL (0.72-1.25)
[2023-12-07 06:35] LABS: POTASSIUM 3.4 mmol/L (3.5-5.1)
[2023-12-07] MEDS: ASPIRIN 325 MG TAB PO SCH (09:53)
[2023-12-07] MEDS: ASCORBIC ACID 500 MG TAB PO SCH ×2 (09:53→21:35)
[2023-12-07] MEDS: ALLOPURINOL 300 MG TAB PO SCH (09:53)
[2023-12-07] MEDS: GLIMEPIRIDE 2 MG TAB PO SCH ×2 (09:53→16:30)
[2023-12-07] MEDS: TAMSULOSIN HCL 0.4 MG CAP PO SCH (09:53)
[2023-12-07] MEDS: CLOPIDOGREL BISULFATE 75 MG TAB PO SCH (09:54)
[2023-12-07] MEDS: METOPROLOL SUCCINATE 25 MG TAB XL PO SCH (09:54)
[2023-12-07] MEDS: CHOLECALCIFEROL 400 UNIT TAB PO SCH (09:54)
[2023-12-07] MEDS: AMLODIPINE BESYLATE 10 MG TAB PO SCH (09:55)
[2023-12-07] MEDS: CLONIDINE HCL 0.2 MG TAB PO SCH ×3 (09:55→21:38)
[2023-12-07] MEDS: AZITHROMYCIN 250 MG TAB PO SCH (21:36)
[2023-12-07] MEDS: SIMVASTATIN 20 MG TAB PO SCH (21:37)
[2023-12-07] MEDS: HYDROCHLOROTHIAZIDE 25 MG TAB PO SCH (21:37)
[2023-12-07] MEDS: LOSARTAN POTASSIUM 100 MG TAB PO SCH (21:37)
[2023-12-08] VITALS (9 sets, daily range): BP systolic 115–152; BP diastolic 52–71; PULSE 71–83; RESP 15–20; TEMP 98.3–99; O2SAT 90–98
[2023-12-08] MEDS: ALBUTEROL/IPRATROPIUM 3 ML NEB NEB SCH ×4 (01:00→19:00)
[2023-12-08] MEDS: LEVOTHYROXINE SODIUM 25 MCG TABLET PO SCH (05:15)
[2023-12-08] MEDS: SODIUM CHLORIDE 0.9% 1000ML 1,000 ML IV SCH (05:15)
[2023-12-08 08:34] LABS: BASOPHILS # (AUTO) 0.1 (0.0-0.1); BASOPHILS % 0.8 % (0.0-1.0); EOSINOPHILS # (AUTO) 0.1 (0.0-0.4); EOSINOPHILS % 1.4 % (0.0-6.0); HEMATOCRIT 41.4 % (38.2-49.6); HEMOGLOBIN 13.6 g/dL (14.0-18.0); LYMPHOCYTES % 9.5 % (18.0-39.1); MEAN CORPUSCULAR HEMOGLOBIN 28.4 pg (28-32); MEAN CORPUSCULAR HGB CONC 32.9 g/dL (31-35); MEAN CORPUSCULAR VOLUME 86.4 fL (81-99); MONOCYTES # (AUTO) 1.2 (0.2-0.8); MONOCYTES % 11.5 % (4.4-11.3); NEUTROPHILS # (AUTO) 7.5 (2.1-6.9); NEUTROPHILS % 74.5 % (38.7-80.0); PLATELET COUNT 264 x10e3/uL (140-360); RED BLOOD COUNT 4.79 x10e6/uL (4.3-5.7); RED CELL DISTRIBUTION WIDTH 13.7 % (11.7-14.4); WHITE BLOOD COUNT 10.03 x10e3/uL (4.8-10.8)
[2023-12-08] MEDS: ASCORBIC ACID 500 MG TAB PO SCH ×2 (08:43→20:48)
[2023-12-08] MEDS: ASPIRIN 325 MG TAB PO SCH (08:44)
[2023-12-08] MEDS: CLONIDINE HCL 0.2 MG TAB PO SCH ×3 (08:44→20:47)
[2023-12-08] MEDS: CLOPIDOGREL BISULFATE 75 MG TAB PO SCH (08:44)
[2023-12-08] MEDS: ALLOPURINOL 300 MG TAB PO SCH (08:44)
[2023-12-08] MEDS: GLIMEPIRIDE 2 MG TAB PO SCH ×2 (08:44→16:09)
[2023-12-08] MEDS: AMLODIPINE BESYLATE 10 MG TAB PO SCH (08:45)
[2023-12-08] MEDS: CHOLECALCIFEROL 400 UNIT TAB PO SCH (08:45)
[2023-12-08] MEDS: METOPROLOL SUCCINATE 25 MG TAB XL PO SCH (08:45)
[2023-12-08] MEDS: TAMSULOSIN HCL 0.4 MG CAP PO SCH (08:47)
[2023-12-08 08:57] LABS: ANION GAP 15.4 mmol/L (8-16); CALCIUM 9.2 mg/dL (8.4-10.2); CREATININE, SERUM 1.35 mg/dL (0.72-1.25)
[2023-12-08 08:58] LABS: POTASSIUM 3.4 mmol/L (3.5-5.1)
[2023-12-08] MEDS: SIMVASTATIN 20 MG TAB PO SCH (20:48)
[2023-12-08] MEDS: AZITHROMYCIN 250 MG TAB PO SCH (20:49)
[2023-12-08] MEDS: LOSARTAN POTASSIUM 100 MG TAB PO SCH (20:53)
[2023-12-08] MEDS: HYDROCHLOROTHIAZIDE 25 MG TAB PO SCH (20:56)
[2023-12-09] VITALS (10 sets, daily range): BP systolic 128–143; BP diastolic 54–69; PULSE 77–103; RESP 15–22; TEMP 97.9–100.2; O2SAT 93–98
[2023-12-09] MEDS: ALBUTEROL/IPRATROPIUM 3 ML NEB NEB SCH ×4 (01:00→20:18)
[2023-12-09] MEDS: LEVOTHYROXINE SODIUM 25 MCG TABLET PO SCH (05:47)
[2023-12-09 06:23] LABS: BASOPHILS % 0.5 % (0.0-1.0); EOSINOPHILS # (AUTO) 0.1 (0.0-0.4); EOSINOPHILS % 1.7 % (0.0-6.0); HEMATOCRIT 36.8 % (38.2-49.6); HEMOGLOBIN 12.2 g/dL (14.0-18.0); LYMPHOCYTES # (AUTO) 0.6 (1.0-3.2); LYMPHOCYTES % 7.2 % (18.0-39.1); MEAN CORPUSCULAR HEMOGLOBIN 27.9 pg (28-32); MEAN CORPUSCULAR HGB CONC 33.2 g/dL (31-35); MEAN CORPUSCULAR VOLUME 84.2 fL (81-99); MONOCYTES # (AUTO) 0.9 (0.2-0.8); NEUTROPHILS # (AUTO) 6.1 (2.1-6.9); NEUTROPHILS % 77.8 % (38.7-80.0); PLATELET COUNT 293 x10e3/uL (140-360); RED BLOOD COUNT 4.37 x10e6/uL (4.3-5.7); RED CELL DISTRIBUTION WIDTH 13.8 % (11.7-14.4); WHITE BLOOD COUNT 7.81 x10e3/uL (4.8-10.8)
[2023-12-09 07:18] LABS: ANION GAP 15.4 mmol/L (8-16); CALCIUM 8.9 mg/dL (8.4-10.2); CREATININE, SERUM 1.25 mg/dL (0.72-1.25)
[2023-12-09 07:24] LABS: POTASSIUM 3.4 mmol/L (3.5-5.1)
[2023-12-09] MEDS: ALLOPURINOL 300 MG TAB PO SCH (09:01)
[2023-12-09] MEDS: AMLODIPINE BESYLATE 10 MG TAB PO SCH (09:01)
[2023-12-09] MEDS: CLOPIDOGREL BISULFATE 75 MG TAB PO SCH (09:01)
[2023-12-09] MEDS: CHOLECALCIFEROL 400 UNIT TAB PO SCH (09:01)
[2023-12-09] MEDS: CLONIDINE HCL 0.2 MG TAB PO SCH ×3 (09:01→21:20)
[2023-12-09] MEDS: GLIMEPIRIDE 2 MG TAB PO SCH ×2 (09:02→17:25)
[2023-12-09] MEDS: ASCORBIC ACID 500 MG TAB PO SCH ×2 (09:02→21:20)
[2023-12-09] MEDS: METOPROLOL SUCCINATE 25 MG TAB XL PO SCH (09:02)
[2023-12-09] MEDS: ASPIRIN 325 MG TAB PO SCH (09:02)
[2023-12-09] MEDS: TAMSULOSIN HCL 0.4 MG CAP PO SCH (09:02)
[2023-12-09] MEDS: DEXAMETHASONE 4 MG TAB PO SCH (11:05)
[2023-12-09] MEDS: ENOXAPARIN SOD INJ 40 MG/0.4 ML SYR SC SCH ×2 (11:06→21:21)
[2023-12-09] MEDS ORDERED: REMDESIVIR 100MG 200 MG in SODIUM CHLORIDE 0.9% 100 ML IV ONE (12:00)
[2023-12-09] MEDS: LOSARTAN POTASSIUM 100 MG TAB PO SCH (21:20)
[2023-12-09] MEDS: HYDROCHLOROTHIAZIDE 25 MG TAB PO SCH (21:20)
[2023-12-09] MEDS: AZITHROMYCIN 250 MG TAB PO SCH (21:20)
[2023-12-09] MEDS: SIMVASTATIN 20 MG TAB PO SCH (21:21)
[2023-12-09] MEDS ORDERED: DEXTROSE 50% SYRINGE 50 ML IV PRN (22:30)
[2023-12-09] MEDS: INSULIN REGULAR, HUMAN 100 UNIT/1 ML SQ SCH (22:47)
[2023-12-10] VITALS (10 sets, daily range): BP systolic 121–148; BP diastolic 57–87; PULSE 75–85; RESP 18–20; TEMP 97.5–98.3; O2SAT 94–98
[2023-12-10] MEDS: ALBUTEROL/IPRATROPIUM 3 ML NEB NEB SCH ×4 (01:00→19:15)
[2023-12-10] MEDS: LEVOTHYROXINE SODIUM 25 MCG TABLET PO SCH (05:23)
[2023-12-10 06:04] LABS: BASOPHILS % 0.2 % (0.0-1.0); HEMATOCRIT 37.9 % (38.2-49.6); HEMOGLOBIN 12.7 g/dL (14.0-18.0); LYMPHOCYTES # (AUTO) 0.5 (1.0-3.2); LYMPHOCYTES % 7.8 % (18.0-39.1); MEAN CORPUSCULAR HGB CONC 33.5 g/dL (31-35); MEAN CORPUSCULAR VOLUME 83.5 fL (81-99); MONOCYTES # (AUTO) 0.5 (0.2-0.8); MONOCYTES % 8.3 % (4.4-11.3); NEUTROPHILS # (AUTO) 4.9 (2.1-6.9); NEUTROPHILS % 81.8 % (38.7-80.0); PLATELET COUNT 385 x10e3/uL (140-360); RED BLOOD COUNT 4.54 x10e6/uL (4.3-5.7); RED CELL DISTRIBUTION WIDTH 13.6 % (11.7-14.4); WHITE BLOOD COUNT 5.93 x10e3/uL (4.8-10.8)
[2023-12-10 06:34] LABS: ANION GAP 16.8 mmol/L (8-16); CALCIUM 9.6 mg/dL (8.4-10.2); CREATININE, SERUM 1.27 mg/dL (0.72-1.25); POTASSIUM 3.8 mmol/L (3.5-5.1)
[2023-12-10] MEDS: INSULIN REGULAR, HUMAN 100 UNIT/1 ML SQ SCH ×4 (07:30→21:48)
[2023-12-10] MEDS: GLIMEPIRIDE 2 MG TAB PO SCH ×2 (09:55→17:09)
[2023-12-10] MEDS: TAMSULOSIN HCL 0.4 MG CAP PO SCH (09:56)
[2023-12-10] MEDS: CLONIDINE HCL 0.2 MG TAB PO SCH ×3 (09:57→21:43)
[2023-12-10] MEDS: DEXAMETHASONE 4 MG TAB PO SCH (09:57)
[2023-12-10] MEDS: METOPROLOL SUCCINATE 25 MG TAB XL PO SCH (09:57)
[2023-12-10] MEDS: ASCORBIC ACID 500 MG TAB PO SCH ×2 (09:57→21:44)
[2023-12-10] MEDS: ALLOPURINOL 300 MG TAB PO SCH (09:58)
[2023-12-10] MEDS: CHOLECALCIFEROL 400 UNIT TAB PO SCH (09:58)
[2023-12-10] MEDS: CLOPIDOGREL BISULFATE 75 MG TAB PO SCH (09:58)
[2023-12-10] MEDS: ASPIRIN 325 MG TAB PO SCH (09:58)
[2023-12-10] MEDS: AMLODIPINE BESYLATE 10 MG TAB PO SCH (09:58)
[2023-12-10] MEDS: ENOXAPARIN SOD INJ 40 MG/0.4 ML SYR SC SCH ×2 (11:57→21:43)
[2023-12-10] MEDS ORDERED: REMDESIVIR 100MG 100 MG in SODIUM CHLORIDE 0.9% 100 ML IV SCH (12:00)
[2023-12-10] MEDS: AZITHROMYCIN 250 MG TAB PO SCH (21:43)
[2023-12-10] MEDS: SIMVASTATIN 20 MG TAB PO SCH (21:44)
[2023-12-10] MEDS: HYDROCHLOROTHIAZIDE 25 MG TAB PO SCH (21:44)
[2023-12-10] MEDS: LOSARTAN POTASSIUM 100 MG TAB PO SCH (21:44)
[2023-12-11] VITALS (11 sets, daily range): BP systolic 102–136; BP diastolic 44–72; PULSE 63–85; RESP 18–20; TEMP 97.6–98.3; O2SAT 94–97
[2023-12-11] MEDS: ALBUTEROL/IPRATROPIUM 3 ML NEB NEB SCH ×4 (01:00→19:31)
[2023-12-11] MEDS: LEVOTHYROXINE SODIUM 25 MCG TABLET PO SCH (05:23)
[2023-12-11 06:21] LABS: CALCIUM 9.3 mg/dL (8.4-10.2); CREATININE, SERUM 1.41 mg/dL (0.72-1.25)
[2023-12-11] MEDS: INSULIN REGULAR, HUMAN 100 UNIT/1 ML SQ SCH ×4 (07:30→21:00)
[2023-12-11] MEDS: ALLOPURINOL 300 MG TAB PO SCH (08:34)
[2023-12-11] MEDS: DEXAMETHASONE 4 MG TAB PO SCH (08:34)
[2023-12-11] MEDS: CLONIDINE HCL 0.2 MG TAB PO SCH ×3 (08:34→21:58)
[2023-12-11] MEDS: GLIMEPIRIDE 2 MG TAB PO SCH ×2 (08:35→17:17)
[2023-12-11] MEDS: ASCORBIC ACID 500 MG TAB PO SCH ×2 (08:35→21:58)
[2023-12-11] MEDS: ASPIRIN 325 MG TAB PO SCH (08:35)
[2023-12-11] MEDS: CHOLECALCIFEROL 400 UNIT TAB PO SCH (08:36)
[2023-12-11] MEDS: METOPROLOL SUCCINATE 25 MG TAB XL PO SCH (08:36)
[2023-12-11] MEDS: CLOPIDOGREL BISULFATE 75 MG TAB PO SCH (08:36)
[2023-12-11] MEDS: TAMSULOSIN HCL 0.4 MG CAP PO SCH (08:36)
[2023-12-11] MEDS: AMLODIPINE BESYLATE 10 MG TAB PO SCH (08:37)
[2023-12-11] MEDS: ENOXAPARIN SOD INJ 40 MG/0.4 ML SYR SC SCH ×2 (12:10→21:59)
[2023-12-11] MEDS: HYDROCHLOROTHIAZIDE 25 MG TAB PO SCH (21:57)
[2023-12-11] MEDS: AZITHROMYCIN 250 MG TAB PO SCH (21:57)
[2023-12-11] MEDS: SIMVASTATIN 20 MG TAB PO SCH (21:57)
[2023-12-11] MEDS: LOSARTAN POTASSIUM 100 MG TAB PO SCH (21:58)
[2023-12-12] VITALS (10 sets, daily range): BP systolic 107–156; BP diastolic 59–80; PULSE 61–99; RESP 16–20; TEMP 97.6–98.3; O2SAT 95–97
[2023-12-12] MEDS: ALBUTEROL/IPRATROPIUM 3 ML NEB NEB SCH ×3 (02:04→13:48)
[2023-12-12] MEDS: LEVOTHYROXINE SODIUM 25 MCG TABLET PO SCH (05:04)
[2023-12-12] MEDS: INSULIN REGULAR, HUMAN 100 UNIT/1 ML SQ SCH ×2 (07:30→11:30)
[2023-12-12] MEDS: ASPIRIN 325 MG TAB PO SCH (09:12)
[2023-12-12] MEDS: GLIMEPIRIDE 2 MG TAB PO SCH (09:12)
[2023-12-12] MEDS: CLOPIDOGREL BISULFATE 75 MG TAB PO SCH (09:12)
[2023-12-12] MEDS: TAMSULOSIN HCL 0.4 MG CAP PO SCH (09:13)
[2023-12-12] MEDS: ALLOPURINOL 300 MG TAB PO SCH (09:13)
[2023-12-12] MEDS: CLONIDINE HCL 0.2 MG TAB PO SCH ×2 (09:13→15:49)
[2023-12-12] MEDS: CHOLECALCIFEROL 400 UNIT TAB PO SCH (09:13)
[2023-12-12] MEDS: DEXAMETHASONE 4 MG TAB PO SCH (09:14)
[2023-12-12] MEDS: METOPROLOL SUCCINATE 25 MG TAB XL PO SCH (09:14)
[2023-12-12] MEDS: AMLODIPINE BESYLATE 10 MG TAB PO SCH (09:14)
[2023-12-12] MEDS: ASCORBIC ACID 500 MG TAB PO SCH (09:15)
[2023-12-12] MEDS: ENOXAPARIN SOD INJ 40 MG/0.4 ML SYR SC SCH (12:01)
== END 2023-12-12 16:28 | DRG 177 ==
LOC: ER 17:52 → ERHOLD 20:21 → MED/SURG2 12-04 17:24 → OBSVTOIN 12-05 07:14
PROVIDERS: ADMIT Family Medicine; ATTEND Family Medicine
PROC: XW043E5 Introduction of Remdesivir Anti-infective into Central Vein, Percutaneous Approach, New Technology Group 5 (ICD-10-PCS; principal; 2023-12-12)
PROC: 3E0DX3Z Introduction of Anti-inflammatory into Mouth and Pharynx, External Approach (ICD-10-PCS; 2023-12-12)
DX: U07.1 COVID-19 (principal); J12.82 Pneumonia due to coronavirus disease 2019; J96.01 Acute respiratory failure with hypoxia; N17.9 Acute kidney failure, unspecified; R53.1 Weakness; I10 Essential (primary) hypertension; I25.10 Atherosclerotic heart disease of native coronary artery without angina pectoris; E03.9 Hypothyroidism, unspecified; E11.9 Type 2 diabetes mellitus without complications; E86.0 Dehydration; R53.81 Other malaise; I25.2 Old myocardial infarction; Z85.46 Personal history of malignant neoplasm of prostate; E87.6 Hypokalemia; Z79.890 Hormone replacement therapy; Z79.899 Other long term (current) drug therapy
CPT/HCPCS: 36415; 71045; 80048; 80053; 82550; 82948; 83605; 83735; 84460; 84484; 85025; 87040; 87086; 87400; 93005; 94799; 96361; 99252; 99284; G0378; J0248; J0696; J1650; J3480; J7030; J7050; U0002

== ENCOUNTER 2023-12-12 21:28 | Emergency (ER) | payer MEDICARE, OTHER ==
[~2023-12-12] VITALS: Ht 175.3 cm; Wt 95.3 kg
[~2023-12-12 21:28] MED LIST changes: +ALLOPURINOL300 MG PO; +AMLODIPINE BESY10 MG PO; +LEVOTHYROXINE50 MCG PO; +METOPROLOL SUCC25 MG PO; +VITAMIN C1000 MG PO
[2023-12-12 22:55] LABS: BASOPHILS % 0.1 % (0.0-1.0); HEMATOCRIT 41.9 % (38.2-49.6); HEMOGLOBIN 13.7 g/dL (14.0-18.0); LYMPHOCYTES # (AUTO) 0.6 (1.0-3.2); LYMPHOCYTES % 7.7 % (18.0-39.1); MEAN CORPUSCULAR HEMOGLOBIN 28.2 pg (28-32); MEAN CORPUSCULAR HGB CONC 32.7 g/dL (31-35); MEAN CORPUSCULAR VOLUME 86.4 fL (81-99); MONOCYTES # (AUTO) 0.6 (0.2-0.8); MONOCYTES % 7.8 % (4.4-11.3); NEUTROPHILS # (AUTO) 6.4 (2.1-6.9); NEUTROPHILS % 82.6 % (38.7-80.0); PLATELET COUNT 407 x10e3/uL (140-360); RED BLOOD COUNT 4.85 x10e6/uL (4.3-5.7); RED CELL DISTRIBUTION WIDTH 13.9 % (11.7-14.4)
[2023-12-12 23:10] LABS: ALANINE AMINOTRANSFERASE 48 IU/L (0-55); ALBUMIN 2.3 g/dL (3.5-5.0); ALBUMIN/GLOBULIN RATIO 0.5 (0.8-2.0); ALKALINE PHOSPHATASE 77 IU/L (40-150); ANION GAP 16.8 mmol/L (8-16); BILIRUBIN,TOTAL 0.4 mg/dL (0.2-1.2); BLOOD UREA NITROGEN 41 mg/dL (7-26); BUN/CREATININE RATIO 29 (6-25); CALCIUM 8.7 mg/dL (8.4-10.2); CARBON DIOXIDE 25 mmol/L (22-29); CHLORIDE 98 mmol/L (98-107); CREATINE KINASE 59 IU/L (30-200); EST GLOMERULAR FILTRATION RATE 52 ML/MIN (>=60); GLUCOSE 202 mg/dL (74-118); POTASSIUM 4.8 mmol/L (3.5-5.1); SODIUM 135 mmol/L (136-145); TOTAL PROTEIN 6.6 g/dL (6.5-8.1)
[2023-12-12 23:23] LABS: TROPONIN I < 0.001 ng/mL (0-0.300)
[2023-12-13] MEDS ORDERED: SODIUM CHLORIDE 0.9% 1000ML 1,000 ML IV SCH (02:30)
[2023-12-13 02:55] VITALS: PULSE 88; RESP 20; O2SAT 95
[2023-12-13 04:52] VITALS: O2SAT 95
== END 2023-12-13 05:05 | disposition home or self-care (01) ==
LOC: ER 21:31 → UNDOADMOB 12-13 02:27 → ERHOLD 12-13 02:27 → ER 12-13 05:05
DX: F41.9 Anxiety disorder, unspecified (principal); U07.1 COVID-19; E11.65 Type 2 diabetes mellitus with hyperglycemia; I25.2 Old myocardial infarction; Z85.46 Personal history of malignant neoplasm of prostate
CPT/HCPCS: 36415; 71045; 80053; 82550; 83690; 83880; 84484; 85025; 93005; 94799; 99284; U0002

== ENCOUNTER 2024-12-15 20:34 | Inpatient (IN) | payer MEDICARE, OTHER ==
[~2024-12-15] VITALS: Ht 175.3 cm; Wt 81.2 kg
[2024-12-15 20:50] VITALS: TEMP 99.7
[2024-12-15 22:25] LABS: STREPTOCOCCUS GRP A ANTIGEN NEGATIVE (NEGATIVE)
[2024-12-15 22:26] LABS: BASOPHILS # (AUTO) 0.1 (0.0-0.1); BASOPHILS % 0.8 % (0.0-1.0); CORONAVIRUS COVID-19 AG NEGATIVE (NEGATIVE); EOSINOPHILS # (AUTO) 0.1 (0.0-0.4); EOSINOPHILS % 0.8 % (0.0-6.0); HEMATOCRIT 47.2 % (38.2-49.6); HEMOGLOBIN 14.7 g/dL (14.0-18.0); INFLUENZA A AG NEGATIVE (NEGATIVE); INFLUENZA B AG NEGATIVE (NEGATIVE); LYMPHOCYTES # (AUTO) 0.8 (1.0-3.2); MEAN CORPUSCULAR HEMOGLOBIN 28.9 pg (28-32); MEAN CORPUSCULAR HGB CONC 31.1 g/dL (31-35); MEAN CORPUSCULAR VOLUME 92.9 fL (81-99); MONOCYTES # (AUTO) 1.1 (0.2-0.8); MONOCYTES % 15.2 % (4.4-11.3); NEUTROPHILS # (AUTO) 5.1 (2.1-6.9); NEUTROPHILS % 71.8 % (38.7-80.0); PLATELET COUNT 174 x10e3/uL (140-360); RED BLOOD COUNT 5.08 x10e6/uL (4.3-5.7); RED CELL DISTRIBUTION WIDTH 13.6 % (11.7-14.4); WHITE BLOOD COUNT 7.12 x10e3/uL (4.8-10.8)
[2024-12-15 22:30] VITALS: PULSE 91; RESP 18
[2024-12-15 22:33] LABS: ALBUMIN 3.6 g/dL (3.5-5.0); ALBUMIN/GLOBULIN RATIO 1.1 (0.8-2.0); ANION GAP 18.6 mmol/L (8-16); BILIRUBIN,TOTAL 0.5 mg/dL (0.2-1.2); CREATININE, SERUM 1.57 mg/dL (0.72-1.25); POTASSIUM 3.6 mmol/L (3.5-5.1)
[2024-12-15 22:40] LABS: TROPONIN I 0.029 ng/mL (0-0.300)
[2024-12-15] MEDS: HYDRALAZINE HCL 20 MG/ML VIAL IV STA (22:54)
[2024-12-15] MEDS ORDERED: CLONIDINE HCL 0.1 MG TAB PO STA (23:28)
[2024-12-15 23:30] VITALS: PULSE 104; RESP 18; O2SAT 98
[2024-12-15] MEDS ORDERED: SODIUM CHLORIDE FLUSH 10 ML SYR INJ PRN (23:45)
[2024-12-16] VITALS (9 sets, daily range): BP systolic 116–196; BP diastolic 59–86; PULSE 79–109; RESP 16–20; TEMP 97.8–99.3; O2SAT 96–98
[2024-12-16] MEDS: FUROSEMIDE INJ 10 MG/ML 4 ML VIAL IV SCH (00:56)
[2024-12-16] MEDS ORDERED: ACETAMINOPHEN 325 MG TAB ONE (01:28)
[2024-12-16] MEDS: HYDRALAZINE HCL 20 MG/ML VIAL IV PRN (02:01)
[2024-12-16] MEDS: ACETAMINOPHEN 325 MG TAB PO ONE (02:45)
[2024-12-16] MEDS ORDERED: HYDRALAZINE HCL 20 MG/ML VIAL IV PRN (04:00)
[2024-12-16] MEDS: CLONIDINE HCL 0.1 MG TAB PO ONE (04:12)
[2024-12-16] MEDS: ONDANSETRON HCL INJ 2MG/ML 2ML 2 MG/ML VIAL IV PRN (04:13)
[2024-12-16 07:06] LABS: BASOPHILS # (AUTO) 0.1 (0.0-0.1); BASOPHILS % 0.7 % (0.0-1.0); HEMATOCRIT 42.6 % (38.2-49.6); HEMOGLOBIN 14.2 g/dL (14.0-18.0); LYMPHOCYTES # (AUTO) 0.6 (1.0-3.2); LYMPHOCYTES % 8.2 % (18.0-39.1); MEAN CORPUSCULAR HEMOGLOBIN 28.8 pg (28-32); MEAN CORPUSCULAR HGB CONC 33.3 g/dL (31-35); MEAN CORPUSCULAR VOLUME 86.4 fL (81-99); MONOCYTES # (AUTO) 0.8 (0.2-0.8); MONOCYTES % 12.1 % (4.4-11.3); NEUTROPHILS # (AUTO) 5.2 (2.1-6.9); NEUTROPHILS % 78.1 % (38.7-80.0); PLATELET COUNT 183 x10e3/uL (140-360); RED BLOOD COUNT 4.93 x10e6/uL (4.3-5.7); RED CELL DISTRIBUTION WIDTH 13.8 % (11.7-14.4); WHITE BLOOD COUNT 6.68 x10e3/uL (4.8-10.8)
[2024-12-16 07:30] LABS: ALBUMIN 3.1 g/dL (3.5-5.0); ANION GAP 17.4 mmol/L (8-16); BILIRUBIN,TOTAL 0.4 mg/dL (0.2-1.2); CALCIUM 9.2 mg/dL (8.4-10.2); CREATININE, SERUM 1.6 mg/dL (0.72-1.25); TOTAL PROTEIN 6.2 g/dL (6.5-8.1)
[2024-12-16 07:31] LABS: POTASSIUM 3.4 mmol/L (3.5-5.1)
[2024-12-16 08:00] LABS: TROPONIN I 0.351 ng/mL (0-0.300)
[2024-12-16] MEDS: CLONIDINE HCL 0.1 MG TAB PO SCH (17:38)
[2024-12-16 17:40] LABS: TROPONIN I 1.859 ng/mL (0-0.300)
[2024-12-16] MEDS: CRESTOR 10MG PO SCH (21:00)
[2024-12-16] MEDS: SIMVASTATIN 20 MG TAB PO SCH (22:26)
[2024-12-16] MEDS: LOSARTAN POTASSIUM 100 MG TAB PO SCH (22:26)
[2024-12-16] MEDS: CLONIDINE HCL 0.2 MG TAB PO SCH (22:27)
[2024-12-16] MEDS: ASPIRIN 325 MG TAB EC PO SCH (22:27)
[2024-12-17] VITALS (9 sets, daily range): BP systolic 111–165; BP diastolic 61–78; PULSE 69–94; RESP 16–18; TEMP 97.5–100; O2SAT 94–97
[2024-12-17] MEDS: LEVOTHYROXINE SODIUM 25 MCG TABLET PO SCH (05:29)
[2024-12-17] MEDS ORDERED: LEVOTHYROXINE SODIUM 50 MCG TAB PO SCH (06:00)
[2024-12-17 06:57] LABS: BASOPHILS % 0.7 % (0.0-1.0); EOSINOPHILS % 0.2 % (0.0-6.0); HEMATOCRIT 46.8 % (38.2-49.6); HEMOGLOBIN 14.6 g/dL (14.0-18.0); LYMPHOCYTES # (AUTO) 0.9 (1.0-3.2); LYMPHOCYTES % 16.4 % (18.0-39.1); MEAN CORPUSCULAR HEMOGLOBIN 28.9 pg (28-32); MEAN CORPUSCULAR HGB CONC 31.2 g/dL (31-35); MEAN CORPUSCULAR VOLUME 92.7 fL (81-99); MONOCYTES # (AUTO) 1.1 (0.2-0.8); MONOCYTES % 19.9 % (4.4-11.3); NEUTROPHILS # (AUTO) 3.4 (2.1-6.9); NEUTROPHILS % 62.4 % (38.7-80.0); PLATELET COUNT 180 x10e3/uL (140-360); RED BLOOD COUNT 5.05 x10e6/uL (4.3-5.7); RED CELL DISTRIBUTION WIDTH 13.6 % (11.7-14.4); WHITE BLOOD COUNT 5.43 x10e3/uL (4.8-10.8)
[2024-12-17 07:29] LABS: ALBUMIN 2.8 g/dL (3.5-5.0); ALBUMIN/GLOBULIN RATIO 0.8 (0.8-2.0); ANION GAP 16.1 mmol/L (8-16); BILIRUBIN,TOTAL 0.5 mg/dL (0.2-1.2); CALCIUM 9.3 mg/dL (8.4-10.2); CREATININE, SERUM 1.81 mg/dL (0.72-1.25); TOTAL PROTEIN 6.1 g/dL (6.5-8.1)
[2024-12-17 07:30] LABS: POTASSIUM 3.1 mmol/L (3.5-5.1)
[2024-12-17] MEDS ORDERED: METOPROLOL SUCCINATE 25 MG TAB XL PO SCH (09:00)
[2024-12-17] MEDS ORDERED: ASPIRIN 81 MG ENTERIC COATED PO SCH (09:00)
[2024-12-17] MEDS ORDERED: CLOPIDOGREL BISULFATE 75 MG TAB PO SCH (09:00)
[2024-12-17] MEDS: ALLOPURINOL 300 MG TAB PO SCH (10:09)
[2024-12-17] MEDS: GLIMEPIRIDE 2 MG TAB PO SCH (10:10)
[2024-12-17] MEDS: METOPROLOL SUCCINATE 25 MG TAB XL PO SCH (10:14)
[2024-12-17] MEDS: AMLODIPINE BESYLATE 10 MG TAB PO SCH (10:15)
[2024-12-17] MEDS: CLOPIDOGREL BISULFATE 75 MG TAB PO SCH (10:15)
[2024-12-17] MEDS: ASCORBIC ACID 500 MG TAB PO SCH (10:15)
[2024-12-17] MEDS: TAMSULOSIN HCL 0.4 MG CAP PO SCH (10:16)
[2024-12-17] MEDS: FUROSEMIDE 20 MG TAB PO SCH (10:16)
[2024-12-18 03:55] VITALS: BP 122/68; PULSE 70; RESP 18; TEMP 98.8; O2SAT 98
[2024-12-18 08:00] VITALS: BP 122/68; PULSE 70; RESP 18; TEMP 98.8; O2SAT 98
[2024-12-18 08:09] VITALS: BP 131/72; PULSE 80; RESP 20; TEMP 97.8; O2SAT 98
[2024-12-18 11:02] VITALS: BP 156/72; PULSE 85; RESP 18; TEMP 97.5; O2SAT 96
[2024-12-18 15:49] VITALS: BP 131/75; PULSE 81; RESP 16; TEMP 97.4; O2SAT 97
== END 2024-12-18 17:15 | disposition home health service (06) | DRG 281 ==
LOC: ER 20:45 → ERHOLD 23:34 → MED/SURG3 12-16 02:45 → OBSVTOIN 12-17 14:17
PROVIDERS: ADMIT Family Medicine; ATTEND Family Medicine
DX: I16.0 Hypertensive urgency (principal); I50.32 Chronic diastolic (congestive) heart failure; I21.A1 Myocardial infarction type 2; I13.0 Hypertensive heart and chronic kidney disease with heart failure and stage 1 through stage 4 chronic kidney disease, or unspecified chronic kidney disease; E11.22 Type 2 diabetes mellitus with diabetic chronic kidney disease; N18.31 Chronic kidney disease, stage 3a; R79.89 Other specified abnormal findings of blood chemistry; I44.0 Atrioventricular block, first degree; E78.00 Pure hypercholesterolemia, unspecified; I25.10 Atherosclerotic heart disease of native coronary artery without angina pectoris; F03.90 Unspecified dementia, unspecified severity, without behavioral disturbance, psychotic disturbance, mood disturbance, and anxiety; R53.81 Other malaise; I25.2 Old myocardial infarction; Z11.52 Encounter for screening for COVID-19; Z79.02 Long term (current) use of antithrombotics/antiplatelets; Z79.82 Long term (current) use of aspirin; Z79.84 Long term (current) use of oral hypoglycemic drugs; Z79.890 Hormone replacement therapy; Z95.5 Presence of coronary angioplasty implant and graft; Z95.1 Presence of aortocoronary bypass graft; Z85.46 Personal history of malignant neoplasm of prostate; Z92.3 Personal history of irradiation; Z90.49 Acquired absence of other specified parts of digestive tract; Z88.5 Allergy status to narcotic agent; Z87.891 Personal history of nicotine dependence
CPT/HCPCS: 36415; 71045; 80053; 82550; 82948; 83518; 83690; 83880; 84484; 85025; 87070; 93005; 93306; 94799; 99284; G0378; J0360; J1940; J2405